=== PATIENT | male | born 1950 | race Caucasian/White ===

== ENCOUNTER 2018-05-29 06:49 | Day surgery (SDC) | payer OTHER, SELFPAY ==
[2018-05-21 16:27] VITALS: BMI 26.6
[2018-05-29] VITALS (11 sets, daily range): BP systolic 128–185; BP diastolic 68–97; PULSE 60–74; RESP 10–18; TEMP 36.3–36.7; O2SAT 94–99; BMI 26.6
--- NOTE | 2018-05-29 07:59 | PM.HP.1 ---
History of Present Illness Date Patient Seen: 05/29/18 Time Patient Seen: 07:53 Chief complaint: 19507 Narrative: Patient is a gentleman here for repair of a symptomatic left inguinal hernia. Patient History Medical History Back pain (Acute) Diverticulosis (Acute) Leg pain (Acute) Status post vasectomy (Acute) Surgical History History of back surgery (Resolved) History of knee replacement (Resolved) S/P left rotator cuff repair (Resolved) S/P right rotator cuff repair (Resolved) History of hernia repair (Inactive) Family & Social History Family History: Reviewed 05/29/18 by Ryan Bai MD Social History: household members spouse Tobacco & Substance use: Smoking Status Former smoker alcohol intake current Substance Use Type marijuana Meds Home Medications Medication Instructions Recorded Confirmed Type atorvastatin [Lipitor] 40 mg PO Q DAY #90 tab 08/13/17 05/29/18 Rx citalopram [Celexa] 20 mg PO QDAY #90 tab 08/13/17 05/29/18 Rx lisinopril 10 mg PO QDAY #90 tab 08/13/17 05/29/18 Rx hydrocodone-acetaminophen [[place]] 1 - 2 tab PO SEE INSTRUCTIONS PRN 05/21/18 05/29/18 History sildenafil [Viagra] 100 mg PO PRN PRN 05/21/18 05/21/18 History Allergies Allergy/AdvReac Type Severity Reaction Status Date / Time oseltamivir [From TAMIFLU] Allergy Mild HIVES Verified 05/29/18 07:24 Review of Systems Review of Systems All systems reviewed & are unremarkable except as noted in HPI and below Exam Vital Signs (past 8 hours): - 05/29/18 07:13 Temperature 97.3 F L Pulse Rate 74 Respiratory Rate 16 Blood Pressure 128/68 Pulse Oximetry 99 Oxygen Delivery Method Room Air Narrative Exam Narrative: Operative no apparent distress. Lungs are clear to auscultation. No rales or rhonchi heart regular rate and rhythm no murmur gallop abdomen is soft nontender without masses. Patient has reducible left inguinal hernia. Testicles normal on that side. Nothing felt on the right. Alert and oriented. Assessment & Plan Plan: Assessment/Plan Narrative: Patient with a left inguinal hernia for repair of discussed the procedure and rationale. The I questions he had regarded of the testicular injury or loss. I explained that that is very rare possibility all questions were answered and he wished to proceed
--- NOTE | 2018-05-29 08:01 | PM.PREOP ---
Pre-operative Note Interval Note Pre-op Check: Yes History & Physical exam performed today by Physician Changes: No
[2018-05-29] MEDS: CEFAZOLIN 2 GM/100 ML FROZ.PIGGY IV (08:13)
--- NOTE | 2018-05-29 08:21 | SUR.OPER ---
Supine on padded OR bed, head on pillow, arms secured on padded arm boards at <90 degrees abduction, legs uncrossed, safety belt at thigh, tape over blanket over lower legs.
[2018-05-29] MEDS: BUPIVACAINE 0.5% (PF) VIAL 30 ML INJ (08:31)
[2018-05-29] MEDS: LACTATED RINGERS 1,000 ML 42 ML IV (09:22)
--- NOTE | 2018-05-29 09:40 | PM.OP.1 ---
Operative Date/Time/Diagnoses Date of procedure: 05/29/18 Time of procedure: 09:19 Pre-op diagnosis: Left inguinal hernia reducible Post-op diagnosis: same (Direct hernia) Procedure & Clinicians Procedure: Repair with plug and patch technique Same procedure as scheduled: Yes Indications: Six the medic left inguinal hernia Surgeon: Ryan Bai Click Yes if Unassisted: Yes Anesthesia Type: General Operative Notes Findings: Direct hernia Closure Type: primary Specimen(s): none sent Implants & Drains: Mesh Estimated Blood Loss (mL): 10 Procedure in detail: The patient was placed supine on the operating room table and underwent general LMA anesthesia. He was prepped and draped in the usual fashion. A transverse incision was made overlying the internal ring and carried down to the level of the external oblique. The external oblique was opened parallel with its fibers through the external ring. The cord structures were elevated. The cremaster was opened proximally and search made for an indirect sac. I could not find any. There was a large amount of fat however protruding up through the floor adherent to the cord structures. Additionally the cord itself contained fat. I removed much of this fat and ligated it. A medium plug was placed in the defect created by this direct hernia. Was tacked into place with interrupted Ethibond sutures. The floor was closed over it. A patch was placed across the floor and tacked at the pubic tubercle, the posterior lamella of the anterior rectus sheath, the ilioinguinal ligament, and superior lateral to the cord. The opening was modified as necessary to prevent tight constriction of the cord. Sutures of 0 Tycron were used to secure the mesh. The external oblique was closed with a running 3 0 Polysorb. The subcu was closed with interrupted 3 0 Polysorb. The skin was closed with a running 4 0 Polysorb subcuticular stitch and Steri-Strips. Dressing was applied, the patient was awakened, and the patient was taken to the recovery area in good condition. Complications: none Condition: stable Disposition: PACU Plan for aftercare: Follow-up in the office
[2018-05-29] MEDS: fentaNYL 100 MCG/2 ML INJ 50 MCG IV ×2 (09:50→09:58)
[2018-05-29] MEDS: OXYCODONE/ACETAMINOPHEN 5/325 TABLET 1 TAB PO ×2 (09:54→10:06)
--- NOTE | 2018-05-29 10:32 | SUR.PHASEII ---
PT TOLERATING COFFEE, WATER AND PUDDING, STATES HIS PAIN IS BETTER AT A 3/10, ICE PACK TO GROIN, DRESSING REMAINS DRY AND INTACT. D/C INSTRUCTIONS GIVEN WITH VERBALIZED UNDERSTANDING.
--- NOTE | 2018-05-29 10:37 | SUR.PHASEII ---
Recieved report from Misti Mello RN and assumed care of pt. Pt states he would like to stay a little longer. Pain is controlled at a 3 and vital signs stable. Pt sitting up drinking coffee will continue to monitor pt and d/c him when he feels ready.
--- NOTE | 2018-05-29 11:32 | SUR.PHASEII ---
Patient states he is ready to go home and d/frances with . States he feels good and denies any complaints.
== END 2018-05-29 11:31 | disposition home or self-care (01) ==
PROVIDERS: Family Provider Family Medicine; PCP Family Medicine; Visit Provider Specialist
PROC: (CPT 49505; principal; 2018-05-29 07:45)
DX: K40.90 Unilateral inguinal hernia, without obstruction or gangrene, not specified as recurrent (principal); Z87.891 Personal history of nicotine dependence; I10 Essential (primary) hypertension
CPT/HCPCS: 49505; C1781; J0690; J1100; J2405; J2704; J3010

== ENCOUNTER → 2018-07-30 09:33 | Outpatient (CLI) | payer OTHER, SELFPAY ==
--- NOTE | 2018-07-30 09:35 | DI.RAD.S_ITS ---
PROCEDURE: XR KNEE RT 3V INDICATIONS: knee pain TECHNIQUE: 3 views of the knee were acquired. COMPARISON: [facility], , KNEE 3V RIGHT, 12/17/2008, 9:36. FINDINGS: Bones: No fractures or dislocations. No suspicious bony lesions. Expected postoperative alignment of medial unicompartmental arthroplasty. Spurring of the superior pole of the patella Soft tissues: Small joint effusion. No suspicious soft tissue calcifications. IMPRESSION: Expected postoperative alignment of medial unicompartmental arthroplasty. Dictated by: Tom Jarvis M.D. on 07/30/2018 at 10:56 Approved by: Tom Jarvis M.D. on 07/30/2018 at 10:57
--- NOTE | 2018-07-30 09:35 | DI.RAD.S_ITS ---
PROCEDURE: XR KNEE LT 3V INDICATIONS: knee pain TECHNIQUE: 4 views of the knee were acquired. COMPARISON: [facility], , KNEE 3V RIGHT, 12/17/2008, 9:36. FINDINGS: Bones: No fractures or dislocations. No suspicious bony lesions. Spurring at the superior pole of patella. Expected postoperative alignment of unicompartmental medial arthroplasty. Soft tissues: Small joint effusion. No suspicious soft tissue calcifications. Scattered vascular calcifications. IMPRESSION: Expected postoperative alignment of medial unicompartmental arthroplasty. Dictated by: Tom Jarvis M.D. on 07/30/2018 at 10:54 Approved by: Tom Jarvis M.D. on 07/30/2018 at 10:56
== END ==
PROVIDERS: Family Provider Family Medicine; PCP Family Medicine; Visit Provider Family Medicine
DX: M25.561 Pain in right knee (principal); M25.562 Pain in left knee; M25.462 Effusion, left knee; M25.461 Effusion, right knee; Z96.653 Presence of artificial knee joint, bilateral
CPT/HCPCS: 73562

== ENCOUNTER → 2018-08-27 08:11 | Outpatient (CLI) | payer OTHER, SELFPAY ==
[2018-08-27 08:46] LABS: Add Manual Diff / Slide Review NO; Basophils Percent Auto 0.5 % (0-2); Eosinophils Percent Auto 3.4 % (2-4); Hematocrit 43.9 % (41-53); Lymphocytes Percent Auto 33.2 % (25-40); Mean Corpuscular HGB Conc 34.3 % (30-36); Mean Corpuscular Hemoglobin 32.2 PG (26-34); Monocytes Percent Auto 9.3 % (3-14); Neutrophils Absolute Auto 3300 /uL (1500-7000); Neutrophils Percent Auto 53.6 % (50-75); Platelet Count 276 X10^3/uL (150-400); Red Blood Cell Count 4.66 X10^6/uL (4.5-5.9); Red Cell Distribution Width 13.4 % (11.6-14.8); White Blood Cell Count 6.1 X10^3/uL (4.5-11.0)
[2018-08-27 09:09] LABS: Alanine Aminotransferase 55 IU/L (21-72); Albumin 4.5 g/dL (3.5-5.0); Albumin Globulin Ratio 1.8 (1.0-2.8); Alkaline Phosphatase 107 U/L (38-126); Aspartate Aminotransferase 38 IU/L (17-59); BUN Creatinine Ratio 22.2 (6-22); Bilirubin Total 0.4 mg/dL (0.2-1.3); Blood Urea Nitrogen 20 mg/dL (9-20); Calcium 9.1 mg/dL (8.4-10.2); Carbon Dioxide 26 mmol/L (22-32); Chloride 103 mmol/L (98-107); Cholesterol 102 mg/dL (140-199); Estimated Glomerular Filt Rate > 60.0 mL/min (>60); Globulin 2.5 g/dL (1.7-4.1); Glucose 98 mg/dL (80-110); HDL Cholesterol 38 mg/dL (40-60); HEMOLYSIS < 15 (0-50); LDL Cholesterol Calculated 48 mg/dL (<100); Potassium 4.4 mmol/L (3.4-5.1); Sodium 144 mmol/L (137-145); Triglycerides 79 mg/dL (35-150)
[2018-08-27 09:21] LABS: Hemoglobin A1C% w Est Avg Glu 5.8 % (4.0-6.0)
[2018-08-27 09:35] LABS: Thyroid Stimulating Hormone 0.91 uIU/mL (0.47-4.68)
[2018-08-27 09:42] LABS: Creatinine Urine Random 103.3 mg/dL
[2018-08-27 09:47] LABS: Microalbumi Creatinin Ratio Ur 8.7 ug/mg CR (<30); Microalbumin Urine Random 0.9 mg/dL (0-1.6)
== END ==
PROVIDERS: Family Provider Family Medicine; PCP Family Medicine; Visit Provider Family Medicine
DX: I10 Essential (primary) hypertension (principal); E78.5 Hyperlipidemia, unspecified; Z12.5 Encounter for screening for malignant neoplasm of prostate; R73.9 Hyperglycemia, unspecified
CPT/HCPCS: 36415; 80053; 80061; 82043; 82570; 83036; 84443; 85025; G0103

== ENCOUNTER → 2019-03-11 15:40 | Outpatient (CLI) | payer OTHER, SELFPAY ==
--- NOTE | 2019-03-11 15:42 | DI.MRI.S_ITS ---
PROCEDURE: MR KNEE LT WO CON INDICATIONS: pain TECHNIQUE: Noncontrast sagittal PD fast spin echo and T2 fast spin echo with fat saturation, sagittal 3-D FLASH with fat saturation; coronal T1 spin echo and PD fast spin echo with fat saturation, and axial PD fast spin echo with fat saturation through the knee. COMPARISON: [facility] [place], CR, XR KNEE STANDING BILATERAL, 08/12/2018, 8:38. FINDINGS: Image quality: Degraded by metallic artifact. Medial compartment arthroplasty has been performed. High T2 signal intensity along the course of the anterior cruciate ligament is present, consistent with myxoid degeneration. No definite ACL tear. Posterior cruciate ligament is intact. Lateral meniscus demonstrates amorphous high signal intensity within the free edge of the body, demonstrating inferior and superior articular surface extension, suggestive of degenerative tearing. Small knee joint effusion. Small Castelan's cyst. Quadriceps and patellar tendon intact. Medial and lateral collateral ligaments grossly intact. Tricompartmental periarticular osteophyte formation, indicating osteoarthritis. IMPRESSION: 1. Limited evaluation secondary to metallic artifact. 2. Myxoid degeneration of the anterior cruciate ligament. 3. Findings suggestive of tearing of the lateral meniscal body. 4. Small knee joint effusion and small Castelan's cyst. 5. Osteoarthritis. Dictated by: Kehinde Martin M.D. on 03/11/2019 at 16:54 Approved by: Kehinde Martin M.D. on 03/11/2019 at 16:57
--- NOTE | 2019-03-11 15:42 | DI.MRI.S_ITS ---
PROCEDURE: MR KNEE RT WO CON INDICATIONS: pain TECHNIQUE: Noncontrast sagittal PD fast spin echo and T2 fast spin echo with fat saturation, sagittal 3-D FLASH with fat saturation; coronal T1 spin echo and PD fast spin echo with fat saturation, and axial PD fast spin echo with fat saturation through the knee. COMPARISON: [facility] [place], CR, XR KNEE STANDING BILATERAL, 08/12/2018, 8:38. FINDINGS: Image quality: Degraded by metallic artifact within the medial compartment. The multiple intraosseous ganglia within the central tibial plateau are present with surrounding moderate degenerative marrow edema. Osseous structures otherwise grossly unremarkable. Small knee joint effusion. Quadriceps and patellar tendons intact. Anterior and posterior cruciate ligaments intact. Medial and lateral collateral ligaments grossly intact. Posterior horn lateral meniscus is intact. No definite lateral meniscal tear, although evaluation is limited by metallic artifact. Mild lateral compartment articular cartilage loss. IMPRESSION: 1. Limited examination secondary to motion artifact. 2. Degenerative sequelae within the tibial plateau. 3. Intact cruciate ligaments. Dictated by: Kehinde Martin M.D. on 03/11/2019 at 16:50 Approved by: Kehinde Martin M.D. on 03/11/2019 at 16:52
== END ==
PROVIDERS: Family Provider Family Medicine; PCP Family Medicine; Visit Provider Family Medicine
DX: M25.561 Pain in right knee (principal); M25.562 Pain in left knee; M17.0 Bilateral primary osteoarthritis of knee; M25.462 Effusion, left knee; M25.461 Effusion, right knee; M71.22 Synovial cyst of popliteal space [Baker], left knee
CPT/HCPCS: 73721

== ENCOUNTER → 2019-09-29 07:57 | Outpatient (CLI) | payer MEDICARE, SELFPAY ==
[2019-09-29 08:47] LABS: Add Manual Diff / Slide Review NO; Basophils Absolute Auto 100 /uL (0-100); Eosinophils Absolute Auto 200 /uL (0-450); Eosinophils Percent Auto 3.7 % (2-4); Hematocrit 41.5 % (41-53); Hemoglobin 13.8 g/dL (13.5-17.5); Lymphocytes Absolute Auto 2400 /uL (1100-4500); Lymphocytes Percent Auto 41.3 % (25-40); Mean Corpuscular HGB Conc 33.3 % (30-36); Mean Corpuscular Hemoglobin 31.9 PG (26-34); Mean Corpuscular Volume 95.6 fL (80-100); Monocytes Absolute Auto 600 /uL (0-900); Monocytes Percent Auto 9.7 % (3-14); Neutrophils Absolute Auto 2600 /uL (1500-7000); Neutrophils Percent Auto 44.3 % (50-75); Platelet Count 251 X10^3/uL (150-400); Red Blood Cell Count 4.34 X10^6/uL (4.5-5.9); Red Cell Distribution Width 13.7 % (11.6-14.8); White Blood Cell Count 5.7 X10^3/uL (4.5-11.0)
[2019-09-29 09:12] LABS: Alanine Aminotransferase 35 IU/L (<50); Albumin 4.6 g/dL (3.5-5.0); Albumin Globulin Ratio 1.6 (1.0-2.8); Alkaline Phosphatase 94 U/L (38-126); Aspartate Aminotransferase 35 IU/L (17-59); Bilirubin Total 0.6 mg/dL (0.2-1.3); Blood Urea Nitrogen 24 mg/dL (9-20); Calcium 9.8 mg/dL (8.4-10.2); Carbon Dioxide 31 mmol/L (22-32); Chloride 102 mmol/L (98-107); Cholesterol 186 mg/dL (140-199); Estimated Glomerular Filt Rate > 60.0 mL/min (>60); Globulin 2.9 g/dL (1.7-4.1); Glucose 101 mg/dL (80-110); HDL Cholesterol 47 mg/dL (40-60); HEMOLYSIS < 15 (0-50); LDL Cholesterol Calculated 103 mg/dL (<100); Potassium 5.1 mmol/L (3.4-5.1); Sodium 141 mmol/L (137-145); Total Protein 7.5 g/dL (6.3-8.2); Triglycerides 181 mg/dL (35-150)
[2019-09-29 09:38] LABS: Prostate Specific Antigen Scrn 2.19 ng/mL (0.1-4.0)
== END ==
PROVIDERS: PCP Family Medicine; Visit Provider Family Medicine
DX: E78.00 Pure hypercholesterolemia, unspecified (principal); E78.2 Mixed hyperlipidemia; I10 Essential (primary) hypertension; Z12.5 Encounter for screening for malignant neoplasm of prostate
CPT/HCPCS: 36415; 80053; 80061; 85025; G0103

== ENCOUNTER → 2019-10-28 07:46 | Outpatient (CLI) | payer MEDICARE, SELFPAY ==
--- NOTE | 2019-10-28 07:55 | DI.ECHO.S_ITS ---
Echocardiogram Report + + :Name: TRAE DORSYE Study Date: 10/28/2019 Height: 69 in : :[facility] Weight: 184 lb : : Gender: Male BSA: 2.0 m2 : :: 1950 Age: 69 yrs BP: 142/80 mmHg: :Reason For Study: MURMUR : :Ordering Physician: Dr. Medel : :Aime Performed By: Denita Orr : :Referring: JESSE HENRIQUEZ : + + Interpretation Summary Left ventricular systolic function is normal without focal wall motion abnormalities with the ejection fraction visually estimated to be 60-65%. Left ventricular wall thickness is mildly increased but diastolic parameters suggest probable normal left ventricular diastolic function and normal filling pressures. The right ventricle is at the upper limits of normal in size but systolic function is normal. The right ventricular systolic pressure is estimated to be at least 23 mmHg based on an estimated right atrial pressure of 3 mm Hg. Both atria are normal in size. There is mild aortic valve sclerosis without stenosis. There is no significant valvular heart disease. Procedure: A two-dimensional transthoracic echocardiogram with color flow and Doppler was performed. The study quality was technically adequate. There is no prior echocardiogram noted for this patient. The patient was in sinus bradycardia with heart rates between 54-57 bpm during the exam. Left Ventricle: The left ventricle is normal in size. Left ventricular wall thickness is mildly increased. A false chord is noted (normal variant). Left ventricular systolic function is normal without focal wall motion abnormalities. The ejection fraction is estimated to be 60-65%. Diastolic parameters suggest probable normal left ventricular diastolic function and normal filling pressures. Right Ventricle: The right ventricle is at the upper limits of normal in size. The right ventricular systolic function is normal. Atria: Both atria are normal in size. There is no Doppler evidence for an interatrial shunt. Mitral Valve: The mitral valve is normal in structure and function. There is trace mitral regurgitation. Aortic Valve: The aortic valve is trileaflet. There is mild aortic valve sclerosis. The aortic valve is slightly calcified. The aortic valve opens well. There is no aortic valve stenosis. There is trace aortic regurgitation. Tricuspid Valve: The tricuspid valve is normal in structure and function. There is trace tricuspid regurgitation. The right ventricular systolic pressure is estimated to be at least 23 mmHg based on an estimated right atrial pressure of 3 mm Hg. Pulmonic Valve: The pulmonic valve is normal in structure and function. There is no pulmonic valvular regurgitation. There is no significant valvular heart disease. Great Vessels: The aortic root is normal size. The dimensions of the ascending aorta are normal. The IVC is of normal diameter and collapses greater than 50% with a sniff. This suggests a low right atrial pressure of 3 mm Hg. Pericardium/ Pleura There is no pericardial effusion. There is no pleural effusion. MMode/2D Measurements & Calculations LVIDd: 3.9 cm LVOT diam: 2.0 cm LVIDs: 2.5 cm Ao root diam: 2.7 cm FS: 36.3 % asc Aorta Diam: 3.1 cm EPSS: 0.72 cm IVSd: 1.2 cm LVPWd: 1.2 cm LV alvarez. diameter/BSA (cm/m^2): 1.9 LV sys. diameter/BSA (cm/m^2): 1.2 LA A2 area: 17.3 cm2 RA long axis: 5.1 cm LA A4 area: 16.9 cm2 RA area: 15.1 cm2 LA length (vol): 4.7 cm RA vol: 37.6 ml LA vol: 52.3 ml RA : 18.9 ml/m2 LA vol index: 26.2 ml/m2 IVC diam: 1.5 cm RVD1 (basal): 3.8 cm TAPSE: 2.5 cm Doppler Measurements & Calculations Ao V2 max: 137.0 cm/sec LVOT Max Abdirizak: 106.6 cm/sec Ao V2 mean: 88.8 cm/sec LV V1 max P.5 mmHg Ao max P.5 mmHg LV V1 VTI: 23.5 cm Ao mean P.7 mmHg ROSSY(I,D): 2.4 cm2 Ao V2 VTI: 29.2 cm ROSSY(V,D): 2.4 cm2 sev ratio: 0.81 ROSSY indexed to BSA (cm^2/m^2): 1.2 MV E max abdirizak: 64.7 cm/sec TR max abdirizak: 226.1 cm/sec MV A max abdirizak: 63.6 cm/sec TR max P.4 mmHg MV E/A: 1.0 PA V2 max: 107.2 cm/sec Med Peak E' Abdirizak: 8.3 cm/sec PA V2 mean: 69.7 cm/sec E/E' med: 7.8 PA mean P.3 mmHg Lat Peak E' Abdirizak: 11.9 cm/sec PA pr(Accel): 32.3 mmHg E/E' lat: 5.4 PA Accel Time: 0.10 sec E/e' average: 6.6 MV dec time: 0.21 sec MV P1/2t: 64.0 msec MV P1/2t max abdirizak: 64.2 cm/sec SV(LVOT): 71.5 ml MVA(P1/2t): 3.4 cm2 _ Reading Physician:SHAHID
== END ==
PROVIDERS: PCP Family Medicine; Referring Provider Family Medicine; Visit Provider Family Medicine
DX: R01.1 Cardiac murmur, unspecified (principal)
CPT/HCPCS: 93306

== ENCOUNTER → 2020-09-27 07:39 | Outpatient (CLI) | payer MEDICARE, OTHER, SELFPAY ==
[2020-09-27 08:36] LABS: Alanine Aminotransferase 37 IU/L (<50); Albumin 4.6 g/dL (3.5-5.0); Albumin Globulin Ratio 1.6 (1.0-2.8); Alkaline Phosphatase 94 U/L (38-126); Aspartate Aminotransferase 34 IU/L (17-59); BUN Creatinine Ratio 22.9 (6-22); Bilirubin Total 0.4 mg/dL (0.2-1.3); Blood Urea Nitrogen 22 mg/dL (9-20); Calcium 9.4 mg/dL (8.4-10.2); Carbon Dioxide 32 mmol/L (22-32); Chloride 105 mmol/L (98-107); Cholesterol 176 mg/dL (140-199); Estimated Glomerular Filt Rate > 60.0 mL/min (>60); Globulin 2.8 g/dL (1.7-4.1); Glucose 105 mg/dL (80-110); HDL Cholesterol 42 mg/dL (40-60); HEMOLYSIS < 15 (0-50); LDL Cholesterol Calculated 94 mg/dL (<100); Sodium 141 mmol/L (137-145); Total Protein 7.4 g/dL (6.3-8.2); Triglycerides 200 mg/dL (35-150)
[2020-09-27 09:06] LABS: Prostate Specific Antigen Scrn 2.12 ng/mL (0.1-4.0)
[2020-09-27 09:14] LABS: Creatinine Urine Random 213.2 mg/dL
[2020-09-27 09:19] LABS: Microalbumi Creatinin Ratio Ur 5.6 ug/mg CR (<30); Microalbumin Urine Random 1.2 mg/dL (0-1.6)
== END ==
PROVIDERS: Referring Provider Family Medicine; Visit Provider Family Medicine
DX: E78.2 Mixed hyperlipidemia (principal); I10 Essential (primary) hypertension; Z12.5 Encounter for screening for malignant neoplasm of prostate
CPT/HCPCS: 36415; 80053; 80061; 82043; 82570; G0103

== ENCOUNTER → 2020-09-29 14:46 | Outpatient (CLI) | payer MEDICARE, SELFPAY ==
[2020-09-29] MEDS: COVID-19 VACC #1, MRNA(MOD) 100 MCG/0.5 ML VIAL IM (14:49)
== END ==
PROVIDERS: Visit Provider Internal Medicine
DX: Z23 Encounter for immunization (principal)
CPT/HCPCS: 0011A; 91301

== ENCOUNTER → 2020-10-27 14:44 | Outpatient (CLI) | payer MEDICARE, OTHER, SELFPAY ==
[2020-10-27] MEDS: COVID-19 VACC #2, MRNA(MOD) 100 MCG/0.5 ML VIAL IM (14:51)
== END ==
PROVIDERS: PCP Family Medicine; Visit Provider Internal Medicine
DX: Z23 Encounter for immunization (principal)
CPT/HCPCS: 0012A; 91301

== ENCOUNTER → 2021-11-01 08:01 | Outpatient (CLI) | payer MEDICARE, OTHER, SELFPAY ==
[2021-11-01 08:20] LABS: Add Manual Diff / Slide Review NO; Basophils Absolute Auto 100 /uL (0-100); Basophils Percent Auto 0.9 % (0-2); Eosinophils Absolute Auto 200 /uL (0-450); Eosinophils Percent Auto 2.9 % (2-4); Hematocrit 42.5 % (41-53); Hemoglobin 14.2 g/dL (13.5-17.5); Lymphocytes Absolute Auto 3100 /uL (1100-4500); Lymphocytes Percent Auto 39.7 % (25-40); Mean Corpuscular HGB Conc 33.4 % (30-36); Mean Corpuscular Hemoglobin 31.5 PG (26-34); Mean Corpuscular Volume 94.3 fL (80-100); Monocytes Absolute Auto 700 /uL (0-900); Neutrophils Absolute Auto 3700 /uL (1500-7000); Neutrophils Percent Auto 47.5 % (50-75); Platelet Count 243 X10^3/uL (150-400); Red Cell Distribution Width 13.7 % (11.6-14.8); White Blood Cell Count 7.7 X10^3/uL (4.5-11.0)
[2021-11-01 08:42] LABS: Alanine Aminotransferase 45 IU/L (<50); Albumin 4.7 g/dL (3.5-5.0); Albumin Globulin Ratio 1.7 (1.0-2.8); Alkaline Phosphatase 85 U/L (38-126); Aspartate Aminotransferase 39 IU/L (17-59); BUN Creatinine Ratio 21.6 (6-22); Bilirubin Total 0.5 mg/dL (0.2-1.3); Blood Urea Nitrogen 19 mg/dL (9-20); Calcium 9.3 mg/dL (8.4-10.2); Carbon Dioxide 28 mmol/L (22-32); Chloride 106 mmol/L (98-107); Cholesterol 212 mg/dL (140-199); Estimated Glomerular Filt Rate > 60.0 mL/min (>60); Globulin 2.7 g/dL (1.7-4.1); Glucose 108 mg/dL (80-110); HDL Cholesterol 42 mg/dL (40-60); HEMOLYSIS 20 (0-50); LDL Cholesterol Calculated 119 mg/dL (<100); Potassium 4.5 mmol/L (3.4-5.1); Sodium 140 mmol/L (137-145); Total Protein 7.4 g/dL (6.3-8.2); Triglycerides 253 mg/dL (35-150)
== END ==
PROVIDERS: PCP Family Medicine; Referring Provider Family Medicine; Visit Provider Family Medicine
DX: E78.00 Pure hypercholesterolemia, unspecified (principal); I10 Essential (primary) hypertension; Z00.00 Encounter for general adult medical examination without abnormal findings
CPT/HCPCS: 36415; 80053; 80061; 85025

== ENCOUNTER → 2022-12-05 09:02 | Outpatient (CLI) | payer MEDICARE, OTHER, SELFPAY ==
[2022-12-05 10:09] LABS: Add Manual Diff / Slide Review NO; Basophils Absolute Auto 100 /uL (0-100); Basophils Percent Auto 0.8 % (0-2); Eosinophils Absolute Auto 300 /uL (0-450); Eosinophils Percent Auto 3.8 % (2-4); Hematocrit 40.8 % (41-53); Hemoglobin 13.4 g/dL (13.5-17.5); Lymphocytes Absolute Auto 2900 /uL (1100-4500); Lymphocytes Percent Auto 42.6 % (25-40); Mean Corpuscular HGB Conc 32.9 % (30-36); Mean Corpuscular Hemoglobin 31.5 PG (26-34); Mean Corpuscular Volume 95.5 fL (80-100); Monocytes Absolute Auto 600 /uL (0-900); Monocytes Percent Auto 9.3 % (3-14); Neutrophils Absolute Auto 2900 /uL (1500-7000); Neutrophils Percent Auto 43.5 % (50-75); Platelet Count 242 X10^3/uL (150-400); Red Blood Cell Count 4.27 X10^6/uL (4.5-5.9); Red Cell Distribution Width 13.8 % (11.6-14.8); White Blood Cell Count 6.8 X10^3/uL (4.5-11.0)
[2022-12-05 10:31] LABS: Alanine Aminotransferase 32 IU/L (<50); Albumin 4.2 g/dL (3.5-5.0); Albumin Globulin Ratio 1.6 (1.0-2.8); Alkaline Phosphatase 86 U/L (38-126); Aspartate Aminotransferase 29 IU/L (17-59); BUN Creatinine Ratio 20.7 (6-22); Bilirubin Total 0.4 mg/dL (0.2-1.3); Blood Urea Nitrogen 18 mg/dL (9-20); Calcium 9.1 mg/dL (8.4-10.2); Carbon Dioxide 29 mmol/L (22-32); Chloride 104 mmol/L (98-107); Cholesterol 184 mg/dL (140-199); Estimated Glomerular Filt Rate > 60 mL/min (>60); Globulin 2.7 g/dL (1.7-4.1); Glucose 97 mg/dL (80-110); HDL Cholesterol 41 mg/dL (40-60); HEMOLYSIS < 15 (0-50); LDL Cholesterol Calculated 89 mg/dL (<100); Potassium 4.7 mmol/L (3.4-5.1); Sodium 141 mmol/L (137-145); Total Protein 6.9 g/dL (6.3-8.2); Triglycerides 271 mg/dL (35-150)
[2022-12-05 11:00] LABS: Prostate Specific Antigen 2.71 ng/mL (0.10-4.00)
== END ==
PROVIDERS: PCP Family Medicine; Referring Provider Family Medicine; Visit Provider Family Medicine
DX: E78.00 Pure hypercholesterolemia, unspecified (principal); I10 Essential (primary) hypertension
CPT/HCPCS: 36415; 80053; 80061; 84153; 85025

== ENCOUNTER → 2023-08-09 15:20 | Outpatient (CLI) | payer MEDICARE, OTHER, SELFPAY ==
[2023-08-09 17:24] LABS: Add Manual Diff / Slide Review NO; Basophils Absolute Auto 100 /uL (0-100); Basophils Percent Auto 0.6 % (0-2); Eosinophils Absolute Auto 200 /uL (0-450); Eosinophils Percent Auto 2.3 % (2-4); Hematocrit 38.1 % (41-53); Hemoglobin 13.1 g/dL (13.5-17.5); Lymphocytes Absolute Auto 3200 /uL (1100-4500); Mean Corpuscular HGB Conc 34.5 % (30-36); Mean Corpuscular Hemoglobin 32.8 PG (26-34); Mean Corpuscular Volume 95.3 fL (80-100); Monocytes Absolute Auto 700 /uL (0-900); Monocytes Percent Auto 8.3 % (3-14); Neutrophils Absolute Auto 4100 /uL (1500-7000); Neutrophils Percent Auto 49.8 % (50-75); Platelet Count 243 X10^3/uL (150-400); Red Cell Distribution Width 13.3 % (11.6-14.8); White Blood Cell Count 8.3 X10^3/uL (4.5-11.0)
[2023-08-09 17:46] LABS: BUN Creatinine Ratio 23.9 (6-22); Blood Urea Nitrogen 21 mg/dL (9-20); Calcium 9.3 mg/dL (8.4-10.2); Carbon Dioxide 31 mmol/L (22-32); Chloride 100 mmol/L (98-107); Estimated Glomerular Filt Rate > 60 mL/min (>60); Glucose 108 mg/dL (80-110); HEMOLYSIS < 15 (0-50); Potassium 4.4 mmol/L (3.4-5.1); Sodium 137 mmol/L (137-145)
[2023-08-09 17:55] LABS: Appearance Urine UA CLEAR; Bilirubin Urine UA NEGATIVE (NEGATIVE); Color Urine UA YELLOW; Glucose Urine UA NEGATIVE (Negative); Ketones Urine UA NEGATIVE (NEGATIVE); Leukocyte Esterase Urine UA NEGATIVE (NEGATIVE); Nitrite Urine UA NEGATIVE (Negative); Occult Blood Urine UA NEGATIVE (Negative); Protein Urine UA NEGATIVE (Negative); Specific Gravity Urine UA 1.025 (1.000-1.035); Urobilinogen Urine UA 0.2 E.U./dL (0.2)
[2023-08-09 17:57] LABS: Hemoglobin A1C% w Est Avg Glu 5.9 % (4.0-6.0)
[2023-08-09 18:30] LABS: Bacteria Urine None Seen; Culture Indicated Urine Cult Not Indicated; RBC Urine None Seen (0-5/HPF); Squamous Epithelial Cell Urine None Seen (0-5/HPF); WBC Urine None Seen (0-5/HPF)
== END ==
PROVIDERS: PCP Family Medicine; Referring Provider Orthopaedic Surgery; Visit Provider Orthopaedic Surgery
DX: Z01.818 Encounter for other preprocedural examination (principal); R73.09 Other abnormal glucose; Z01.812 Encounter for preprocedural laboratory examination; N39.0 Urinary tract infection, site not specified
CPT/HCPCS: 36415; 80048; 81001; 83036; 85025; 93005; 93010

== ENCOUNTER 2023-09-03 11:45 | Day surgery (SDC) | payer MEDICARE, OTHER, SELFPAY ==
[2023-08-28 07:54] VITALS: BMI 28.0
[2023-09-03] VITALS (11 sets, daily range): BP systolic 137–169; BP diastolic 70–91; PULSE 60–86; RESP 12–18; TEMP 36.2–36.9; O2SAT 93–98; BMI 28.0
[2023-09-03] MEDS: VANCOMYCIN 1,000 MG/200 ML PIGGYBACK 200 MG IV (12:45)
[2023-09-03] MEDS: ACETAMINOPHEN 325 MG TABLET 975 MG PO (12:45)
--- NOTE | 2023-09-03 13:27 | PM.PREOP ---
Pre-operative Note Interval Note History & Physical reviewed/Exam performed by Physician: Yes Changes to H&P: No
--- NOTE | 2023-09-03 13:29 | SUR.OPER ---
Head on pillow. Supine on fracture table with operative leg secured in traction. Other leg secured in padded stirrup. Arms across chest, secured with sheet.
--- NOTE | 2023-09-03 13:33 | PM.OP.1 ---
Operative Date/Time/Diagnoses Date of procedure: 09/03/23 Time of procedure: 14:00 Pre-op diagnosis: left hip OA Post-op diagnosis: same Procedure & Clinicians Procedure: Left total hip arthroplasty anterior approach Same procedure as scheduled: Yes Indications: The patient has had progressively worsening left hip pain with radiographic changes consistent with arthritis. Non-operative management has failed and the patient has requested total hip replacement. The risks, benefits and alternatives to surgery were discussed with the patient prior to proceeding. Risks discussed included, but were not limited to, failure to relieve pain, leg length discrepancy, dislocation, stiffness, infection, nerve damage, deep venous thrombosis, pulmonary embolism, stroke, coma, heart attack, permanent paralysis and , as well as the potential need for eventual revision of the prosthetic. Surgeon: Krysta Wilson [employer] Developer: David Romero Operative Notes Findings: Severe left hip OA, good quality bone Closure Type: primary Specimen(s): none sent Prosthetic devices, grafts, tissues, transplants, or devices: Wilson and nephew R3 size 56, neutral poly liner, one 6.5 mm screw, size 0 polar stem, 36 x +4 cobalt chrome head Estimated Blood Loss (mL): 200 Blood products transfused: none Procedure in detail: The patient was brought to the operating room. Patient was carefully positioned in the supine position. Time-out was performed and antibiotics were given. Anesthesia was induced. He was positioned in the on the table in order to allow hyperextension of the hip. The left lower extremity was prepped and draped in a standard sterile fashion. An anterior left hip incision was made 1 fingerbreadth lateral to the anterior superior iliac spine and extended distally towards the greater trochanter. Dissection was carried out through skin and subcutaneous tissues. Superficial hemostasis was achieved. The fascia over the tensor fascia helga was defined and incised with a knife. Two Allis clamps were used to grasp the fascia. Tensor fascia helga was retracted laterally. A gelpi retractor was placed. Dissection was carried out down along the neck. The circumflex vessels were carefully identified and cauterized with the Aqua Mantis. A PA was used during the procedure and was essential for intraoperative retraction and safe implantation of the components. There was good visualization of the femoral neck. A Cobra was placed superior to the neck and the gluteus fibers were carefully stripped from that superior aspect of the capsule. A 2nd retractor was placed along the inferior aspect of the neck. The rectus insertion along the capsule was partially released. A 3rd retractor that was then gently placed over the rim of the acetabulum under the rectus. Capsule was carefully incised and released from the intertrochanteric line circumferentially superior to the mid sagittal line and inferiorly to the mid sagittal line until the lesser trochanter was palpable. A tag stitch was placed both in the superior and inferior limb of the capsular insertion. Along the acetabulum capsule was also released up to the mid sagittal 12:00 position. A portion of the labrum was resected. A saw was used to perform an osteotomy at the level of the intertrochanteric line and the junction of the superior femoral neck leaving approximately 1 finger breath of residual inferior neck above the lesser trochanter. A 2nd cut was made along the femoral neck at the base of the head and a napkin ring of neck was removed. Corkscrew was placed in the femoral head and the head was removed without difficulty. Retractors were then repositioned around the acetabulum. Residual labrum was resected and additional osteophytes were removed. A reamer that was 4 mm below the templated size was placed by hand in the acetabulum and it was reamed to centralize the acetabulum. It was then reamed up to 2 under the templated size and fluoroscopy was brought in to confirm the position of the reaming and depth of reaming. I reamed 1 under the anticipated size. A trial cup was placed and noted that it was appropriately sized and fluoroscopy confirmed position and depth. The component was open and inserted without difficulty fluoroscopic imaging was used to confirm that the cup had been adequately seated and was well positioned. It was further stabilized with a single screw. Neutral poly liner was placed. The cup was tested and noted to be stable. Attention was then directed to the femur. The femur was gently hyperextended additional capsular release was performed as needed in order to allow adequate visualization of the proximal femur with elevation of the femur. Patient was placed in a hyperextended slightly adducted position with maximum external rotation. Box osteotome was used to check for any residual neck as well as sclerotic bone along the trochanter. Julian pepper was placed in the femur. Additional broaching was performed. Canal finder was used to determine the alignment of the canal and position. he had fairly dense bone overall. I started initially with a polar stem but because of his very dense bone and looked at the [facility] a technology and eventually stabilized him with a polar stem. Size 1 broach was placed. The canal was then appropriately broached up to the templated size as long as there was adequate stability of the broach and serial advancement of the broach without excessive impingement. Specific attention was directed at avoiding varus attempting to direct the distal aspect of the broach more anteriorly and avoiding excessive anteversion. Trial reduction showed acceptable range of motion, good stability, no posterior impingement, holiness of leg length and appropriate lateral shuck. I also hyperflexed the hip and checked that there was no impingement anteriorly and there was good stability with flexion, adduction and internal rotation. Marcaine and Exparel were injected. The stem was placed without difficulty. Repeat trial reduction and x-ray showed acceptable overall position, length, and no evidence of the femoral fracture. Final head was placed. Wound was meticulously irrigated with normal saline. The hip was reduced and additional Exparel and Marcaine were injected. The capsule was closed with interrupted nonabsorbable sutures. The fascia of the tensor was closed with interrupted and running Vicryl. No drain was placed. Any tensor fascia helga muscle that appeared to be contused or injured which was a minimal amount was carefully resected. Capsule around the tensor was injected with Exparel and Marcaine. The skin was closed with barbed stitches for the subcutaneous tissue and skin. We also used surgical glue. The wound was dressed sterilely. Brief Betadine soak was also used and was meticulously irrigated with normal saline. Patient was transferred to recovery room in satisfactory condition. Complications: none Post-operative Condition: stable Disposition: Acute Care Plan for aftercare: The patient will be maintained on a standard total hip replacement protocol with weight bearing as tolerated and anterior hip precautions. The patient will receive Aspirin and sequential compression devices for DVT prophylaxis. The patient will be discharged home when safe for the home environment.
--- NOTE | 2023-09-03 14:00 | DI.RAD.S_ITS ---
PROCEDURE: XR HIP W PEL IF DONE LT 2V INDICATIONS: ELICEO TECHNIQUE: 4 intraoperative images of the left hip were acquired.. COMPARISON: None. FINDINGS: Four intraoperative images of left hip arthroplasty. Prosthetic elements are in appropriate position. IMPRESSION: Left hip arthroplasty with intraoperative images demonstrating appropriate positioning of prosthetic elements. Please see separately dictated operative report for full details. Dictated by: Latasha Burrell M.D. on 09/03/2023 at 18:09 Approved by: Latasha Burrell M.D. on 09/03/2023 at 18:11
[2023-09-03] MEDS: CEFAZOLIN 2 GM/100 ML PREMIX 100 ML IV ×2 (14:03→18:04)
[2023-09-03] MEDS: BUPIVACAINE 0.25% (PF) VIAL 30 ML INJ (14:33)
[2023-09-03] MEDS: BUPIVACAINE LIPOSOME 266 MG/20 ML VIAL INJ (14:34)
[2023-09-03] MEDS: TRANEXAMIC ACID 1,000 MG VIAL 1000 MG INJ (14:35)
[2023-09-03] MEDS: LACTATED RINGERS 1,000 ML 42 ML IV (15:23)
--- NOTE | 2023-09-03 17:00 | DI.RAD.S_ITS ---
PROCEDURE: XR HIP W PEL IF DONE LT 2V INDICATIONS: LEFT ANTERIOR HIP REPLACEMENT TECHNIQUE: AP pelvis and lateral view of the hip acquired. COMPARISON: [facility], CR, XR HIP W PEL IF DONE LT 2V, 09/03/2023, 15:02. FINDINGS: Bones: Patient is status post left hip arthroplasty, with hardware components in expected positions. The hip joint appears congruent. The visualized bony structures appear intact. Postsurgical changes of right posterior spinal fusion at L5-S1. Interbody graft material from prior L5-S1 discectomy. Moderate-severe degenerative changes of the right hip. Soft tissues: Overlying postoperative changes are noted. No suspicious soft tissue densities. IMPRESSION: Expected post-operative appearance of left total hip arthroplasty. Dictated by: Tariq Astudillo M.D. on 09/03/2023 at 20:50 Approved by: Tariq Astudillo M.D. on 09/03/2023 at 20:51
--- NOTE | 2023-09-03 17:22 | SUR.PHASEI ---
Patient to take home medication Lisinopril tonight per Dr. Bruner. Pharmacist Thomas notified to update order, pharmacist agreed.
--- NOTE | 2023-09-03 17:27 | SUR.PHASEI ---
Report called to Denita.
--- NOTE | 2023-09-03 17:43 | SUR.PHASEI ---
Addendum entered by Suman Montoya R.N. 09/03/23 17:44: dressing CDI. Original Note: Patient transferred to the floor with belongings bag and black bag. Bedside report given to Denita. VS stable. IV patent. Left hip
[2023-09-03] MEDS: lisinopriL 20 MG TABLET PO (18:04)
[2023-09-03] MEDS: LACTATED RINGERS 1,000 ML 100 ML IV (18:06)
[2023-09-03] MEDS: HYDROCODONE/ACET 5/325 TABLET 1 TAB PO (18:11)
[2023-09-03] MEDS: ASPIRIN EC 81 MG TABLET PO (20:21)
[2023-09-03] MEDS: ACETAMINOPHEN 325 MG TABLET 650 MG PO (20:21)
[2023-09-03] MEDS: DOCUSATE 100 MG CAPSULE PO (20:21)
[2023-09-04] MEDS: HYDROCODONE/ACET 5/325 TABLET 1 TAB PO ×3 (00:14→12:24)
[2023-09-04 00:40] VITALS: BP 162/78; PULSE 89; RESP 16; TEMP 36.8; O2SAT 96
[2023-09-04] MEDS: CEFAZOLIN 2 GM/100 ML PREMIX 100 ML IV (02:13)
[2023-09-04] MEDS: OXYCODONE IR 5 MG TABLET PO ×3 (05:14→15:04)
[2023-09-04 06:10] LABS: Hematocrit 35.7 % (41-53); Hemoglobin 12.1 g/dL (13.5-17.5)
--- NOTE | 2023-09-04 06:30 | PM.DS.1 ---
History of Present Illness History of Present Illness Date Patient Seen: 09/04/23 Time Patient Seen: 06:15 Chief complaint: Left Total Hip Arthroplasty 09/03 Narrative: The patient has had progressively worsening left hip pain with radiographic changes consistent with arthritis. Non-operative management has failed and the patient has requested total hip replacement. The risks, benefits and alternatives to surgery were discussed with the patient prior to proceeding. Risks discussed included, but were not limited to, failure to relieve pain, leg length discrepancy, dislocation, stiffness, infection, nerve damage, deep venous thrombosis, pulmonary embolism, stroke, coma, heart attack, permanent paralysis and , as well as the potential need for eventual revision of the prosthetic. This running he is feeling well. Describing an aching sensation over his thigh. Able to control pain with oral medications. States he has no steps at home and has family to support him. Discharge Providers Provider Date of admission: 09/03/23 Discharge Date: 09/04/23 Primary care physician: Mc Mayo MD Consults: 09/03/23 06:50 Consult to Anesthesiology Routine Comment: Consulting Provider: Anesthesiologist Reason for consultation: Regional block for post operative pain control 09/03/23 17:42 Consult to Discharge Planning Routine Comment: Consult to Occupational Therapy Evaluate & Treat Comment: Physician Instructions: Evaluate and treat Consult to Physical Therapy Evaluate & Treat Comment: Physician Instructions: post op ELICEO protocol Discharge provider: Nate Pichardo PA-C Summary Hospital Course Discharge Diagnosis: Status Post Left Total Hip Arthroplasty Hospital Course: Pain relief. Phyiscal therapy. Status at Discharge Cognitive/behavioral status at discharge: oriented Functional status at discharge: uses cane/walker Overall status at discharge: patient is back to baseline Time Spent with Patient Time spent: Less than 30 minutes Exam Vital Signs (past 8 hours): - 09/04/23 00:40 Temperature 98.2 F Pulse Rate 89 Respiratory Rate 16 Blood Pressure 162/78 H Pulse Oximetry 96 Oxygen Flow Rate 0 Oxygen Delivery Method Room Air Oxygen Flow Rate 0 Narrative Exam Narrative: Patient is found lying comfortably in bed. Dressing appears clean and dry. No pain to palpation along posterior thigh are calf. Able to dorsiflex and plantar flex against resistance at the ankle. Sensation grossly intact to the lower extremities bilaterally. Const General: cooperative, healthy appearing and comfortable Resp Effort & Inspection: normal respiratory effort and able to speak in complete sentences Objective Labs 09/04/23 06:05 Labs: Laboratory Results - last 24 hr 09/04/23 06:05 Hgb 12.1 L Hct 35.7 L PFSH Medical History (Updated 08/28/23 @ 09:14 by Gladis Farr RN) GI bleed (09/2017) NEERAJ (obstructive sleep apnea) Cerumen impaction Redundant eyelid of both eyes Daytime sleepiness Witnessed apneic spells Chronic pain syndrome Diverticulosis Back pain Leg pain Surgical History (Updated 08/28/23 @ 09:12 by Gladis Farr RN) Hx of left inguinal hernia repair (05/29/18) Status post vasectomy History of back surgery History of hernia repair S/P left rotator cuff repair S/P right rotator cuff repair History of knee replacement Family History Father Hypertension Heart disease Cancer Social History (Updated 02/26/18 @ 16:25 by Francisca Roberts LPN) marital status: household members: spouse occupational status: other Smoking Status: Former smoker alcohol intake: current substance use type: marijuana Discharge Assessment & Plan Assessment and Plan Assessment: Status Post Right Hip Arthroplasty Plan of Treatment: Discharge home. Prescribed hydrocodone/acetaminophen 5/325 take 1 tablet every 4 hours as needed for pain. Also recommend take ibuprofen 400 mg every 4 hours for pain inflammation. Aspirin 81 mg 1 pill twice a day for 6 weeks for DVT prophylaxis. Start outpatient physical therapy within the next 7-10 days. Follow-up at [facility] orthopedics clinic in 2 weeks for wound check. Discharge Plan Discharge Plan Patient Disposition: Home Provider Discharge Comment: DC pending PT evaluation Discharge orders & Medications Discharge Orders: Discharge (Order); Ordered 09/04/23 Ordered By: Nate Pichardo Prescriptions: Continued (DME) Disabled Parking See Rx Instructions .Route .MEDSUPPLY Qty: 1 0RF Rx Instructions: Patient has a qualifying condition that requires disabled parking permissions. atorvastatin [Lipitor] 40 mg tablet 40 mg PO Q DAY Qty: 90 3RF citalopram 20 mg tablet See Rx Instructions .ROUTE .COMPLEX Qty: 90 3RF Dose Instruction: TAKE ONE TABLET BY MOUTH ONCE DAILY Rx Instructions: TAKE ONE TABLET BY MOUTH ONCE DAILY hydrocodone-acetaminophen 5-325 mg tablet 1 tab PO TID PRN (Reason: pain) Qty: 90 0RF Rx Instructions: Earliest fill 07/17/23 lisinopril 20 mg tablet 20 mg PO DAILY Qty: 30 2RF Patient Comments: Takes at bedtime ibuprofen 200 mg Tablet 200 mg PO PRN PRN (Reason: Pain (Scale Score 4-6)) Follow up/Referrals: Mc Mayo MD [Primary Care Provider] - Krysta Wilson MD [Physician] - As previously scheduled (Follow up with [place]oacano Pichardo PA-C, on 09/13/2023 @ 11:[address] [facility] in [place].) Diet/Activity/Treatments Diet: Diet as Tolerated Activity: Weightbearing as tolerated to left leg. Posterior hip precautions. Cold/Heat Therapy: Ice to hip as needed for pain. Skin/Wound/Dressing Care Report to your healthcare provider any signs of infection, such as:: chills, fever, night sweats, unusual drainage and unusual redness Dressing: May shower. Leave dressing in place until follow up in office. No bathing or otherwise soaking incision. Call the office if the dressing becomes saturated inside. Visit Report/Discharge Packet Stand Alone Forms: Patient Portal/API Discharge Data Primary Care Provider: Mc Mayo Attending Provider: Krysta Wilson Quality VTE Deep Vein Thrombosis/Pulmonary Embolism Present on Admission: No
[2023-09-04 07:49] VITALS: BP 135/65; PULSE 80; TEMP 36.4; O2SAT 97
[2023-09-04 08:20] VITALS: BP 135/65; PULSE 80
[2023-09-04] MEDS: CITALOPRAM 10 MG TABLET 20 MG PO (08:20)
[2023-09-04] MEDS: ASPIRIN EC 81 MG TABLET PO (08:20)
[2023-09-04] MEDS: lisinopriL 20 MG TABLET PO (08:20)
[2023-09-04] MEDS: ATORVASTATIN 20 MG TABLET 40 MG PO (08:20)
[2023-09-04] MEDS: DOCUSATE 100 MG CAPSULE PO (08:21)
--- NOTE | 2023-09-04 09:25 | PT.IIE ---
Current Diagnoses Unilateral primary osteoarthritis, left hip (09/03/23) Surgery Performed Operation Date: 09/03/23 13:45 Actual Procedures p Total Hip Arthroplasty/Anterior Approach(Left) - Krysta Wilson MD Surgical History (Last Updated 08/28/23 @ 09:12 by Gladis Farr, RN) History of back surgery History of hernia repair History of knee replacement Hx of left inguinal hernia repair (05/29/18) S/P left rotator cuff repair S/P right rotator cuff repair Status post vasectomy Medical History (Last Updated 08/28/23 @ 09:14 by Gladis Farr RN) Back pain Cerumen impaction Chronic pain syndrome Daytime sleepiness Diverticulosis GI bleed (09/2017) Leg pain NEERAJ (obstructive sleep apnea) Redundant eyelid of both eyes Witnessed apneic spells Physical Therapy Inpatient Evaluation/Re-Eval M1 PT/OT-IP Prior Functional Status Start: 09/04/23 11:40 Freq: NEEDED Status: Active Protocol: Document 09/04/23 09:25 AB (Rec: 09/04/23 11:54 AB [id number]) Medical Review Prior Functional Status Medical History Reviewed Yes Communication able to make needs known Mobility and Gait pt stated that he was modified independent with all mobilties and ambulation without AD indoors but uses a SPC for outdoor/long distance ambulation Social History Household Members spouse Living Arrangements House Number of Floors (Floors) One Floor Number of Stairs To Enter/Railing? no steps to enter Home Environment High Toilet,Walk in Shower Home Equipment Front Wheel Walker,Straight Cane,Hand Held Shower M2 PT-IP Current Condition Start: 09/04/23 11:40 Freq: NEEDED Status: Active Protocol: Document 09/04/23 09:25 AB (Rec: 09/04/23 11:54 AB [id number]) Physical Therapy Current Condition Current Condition Evaluation Date 09/04/23 Treatment Diagnosis s/p L ELICEO anterior; difficulty in walking Onset Date 09/03/23 M3 PT-IP Subjective Start: 09/04/23 11:40 Freq: NEEDED Status: Active Protocol: Document 09/04/23 09:25 AB (Rec: 09/04/23 11:54 AB [id number]) Subjective Physical Therapy Visit Type Type Initial Evaluation Visit Start Time 09:25 Visit Stop Time 10:25 Total Visit Minutes 60 Number of BRASS PICKLER Visits 0 Physical Therapy Visit Comments Patient Comments pt is agreeable to do PT Therapy Pain Assessment Pain When Pain Assessed At Rest Location Left hip Intensity 5 Scale Used 8/10 with mobility Pain Behaviors Guarding,Holding Area,Wincing Pain Management Techniques Apply Cold,Distraction, Modification of Treatment,Re- positioning,Timing of Activity with Medications M4 PT-IP Mobility and Gait Start: 09/04/23 11:40 Freq: NEEDED Status: Active Protocol: Document 09/04/23 09:25 AB (Rec: 09/04/23 11:54 AB [id number]) PT-Bed Mobility Assessment Rolling Type of Rolling Log Rolling Level of Assist Maximal Assistance Supine to Sit Supine to Sit Maximum Assistance PT-Transfer Assessment Sit to and From Stand Sit to and from Stand Moderate Assistance,Maximum Assistance,1 Person Assistance ,Use of Upper Extremities Equipment Transfer Assistive Device Gait Belt,Front Wheeled Walker Orthotic/Prosthetic Devices or Brace: No Transfers Transfer Destination Chair Transfer Technique ambulated Transfer Ability Level of Assist Minimal Assistance,1 Person Assistance,Use of Upper Extremities Comments Mobility Comments pt supine in bed and agreeable to do PT. BP in supine: 140/ 64. obtained PLOF and home set up. educated pt regarding anterior hip precautions on LLE and post-op folder also provided. reviewed post-op folder contents and exercises. pt completed supine to sit log roll x 5 attempts and unable to complete without assistance needing max A and max cues and use of bed rail. pt with back problems with h/o back fusion and has been doing log roll bed mobility prior to hip sx. pt requiring SBA for sitting balance on EOB. completed sit to stand mod A to max and cues. instructed pt to sit back on EOB and required max A for controlled descent. educated on sit<> stand techniques. completed sit <>stand again x 2 sets mod A and cues. pt ambulated in room ~ 40 ft using FWW min A and cues for hip precautions. pt agreed to sit on the chair. positioned on the chair. ice pack provided. call light and table placed within reach. informed pt regarding caregiver training and agreed. pt also stated that he does not feel that he is ready to go home. pt called spouse to come in at 1pm today for caregiver training. Gait Assessment Gait Gait Assistance Required: Minimum Assistance Distance (Feet) 40 Able to Maintain Weight Bearing Status Yes During Gait Assistive Devices Assistive Device Gait Belt,Front Wheeled Walker Orthotic/Prosthetic Devices or Brace: No Gait Deviations General Gait Pattern Antalgic,Decreased Stride Length,Decreased Feet Clearance,Flexed Trunk,Step-to Gait Factors Limiting Gait Function Factors Limiting Gait Function Decreased Activity Tolerance, Decreased Strength,Difficulty Following Directions,Limited Range of Motion,Pain,Poor Balance,Poor Safety Awareness PT-Balance Assessment Sitting Balance and Reactions Static Sitting Balance Ability Normal Dynamic Sitting Balance Ability Good Standing Balance and Reactions Static Standing Balance Ability Fair Dynamic Standing Balance Ability Fair Device Used FWW M5 PT-IP Objective Assessments Start: 09/04/23 11:40 Freq: NEEDED Status: Active Protocol: Document 09/04/23 09:25 AB (Rec: 09/04/23 11:54 AB [id number]) Orientation Orientation/Cognition Level of Alertness Alert Orientation Name,Place,Situation Language Function Ability No Deficits Noted Safety Awareness Decreased Safety Awareness Memory Description Short Term Impaired Strength Lower Extremity Strength Assessment Left Impaired Hip 3+/5 Knee 4-/5 Muscle Tone Muscle Tone WNL Yes M6 PT-IP Treatment Start: 09/04/23 11:40 Freq: NEEDED Status: Active Protocol: Document 09/04/23 09:25 AB (Rec: 09/04/23 11:54 AB [id number]) Physical Therapy Treatment Exercises Exercises Heel Slides Education Education Provided Precautions,Weight Bearing Status,Post-Op Packet,Safety M7 PT-IP Assessment and Plan Start: 09/04/23 11:40 Freq: NEEDED Status: Active Protocol: Document 09/04/23 09:25 AB (Rec: 09/04/23 11:54 AB [email or web address]) PT Summary Assessment and Plan Potential Rehabilitation Potential Fair Summary Impairments Pain,ROM,Strength,Balance, Coordination,Sensation, Cognition,Bed Mobility, Transfers,Gait,Activity Tolerance Assessment Summary pt is a 73 y/o male s/o L ELICEO anterior approach POD 1. pt has L anterior hip precautions and is WBAT. pt requiring max A for bed mobiltiy, mod to max A for transfers and min A for ambulation using FWW. Caregiver training set up this afternoon at 1 pm. will continue to assess for safe d/ c plan. Goals Bed Mobility Goal Standby Assistance Transfer Goal Standby Assistance,Front Wheeled Walker Gait Goal Standby Assistance,Front Wheel Walker Gait Distance 100 Other Goals improve bed mobility, transfers and ambulation using FWW or LRAD 250 ft mod I Days to Meet Goals 5 Frequency of Treatment Frequency Of Treatment Twice a Day Treatment Plan Physical Therapy Treatment Plan Bed Mobility Training,Transfer Training,Gait Training, Therapeutic Exercise,Balance Retraining,Post Op Education, Discharge Planning,Hot or Cold Pack,Neuromuscular Re-ed, Coordination Retraining,Manual Therapy Other Recommendations and Next Treatment caregiver training 09/04/23 @ 1 Focus pm Precautions Anterior Hip Precautions No Hip Extension,No Hip External Rotation Weight Bearing Status Weight Bearing Status Weight Bear as Tolerated Allowed Weight Bearing Amount (enter % LLE WBAT or #) (%) Recommendations To Nursing Amount of Assist Needed 1 Person Assist Discharge Recommendations PT Discharge Recommendations Home with Assistance,Home with 25/03 Assist Available,Home Health,Outpatient PT Transportation Needs at Discharge Private Vehicle
--- NOTE | 2023-09-04 09:29 | CM.DANOTE ---
Addendum entered by Jackeline Ramirez R.N. 09/04/23 14:08: Patient was working with therapy, hopes to stay another day. Met with spouse and patient, reminded them that this is an outpatient surgery, unless there is a medical reason for staying, patients usually leave the same day. She asked how much the room stay would be to stay another day, let them know that this DC Bistro Server can't quote this, could be a significant amount, but unclear. Did discuss home health, patient and spouse are interested. Went over the Medicare choice list, they have no preferences. They are ok with RN, P.t, O.T. Noticed that [facility] is on the list for this week, [place] is kindly, emailing the referral. Went back to the room to give a brochure, patient having significant pain. Spouse asked if this DC Bistro Server was to call the doctor about pain and staying another day, and referred her to the nurse, Nuha. At this time, there is a possibility patient may stay another day. For now, will go ahead and order [facility] services. Original Note: DCP: Case received, EMR reviewed and met with patient. Introduced self and role. Was able to obtain information regarding patient's baseline activity status prior to his surgery. DCP assessment completed with information currently available. Patient is a 73 year old male who admitted yesterday morning to the care of the orthopedic team. PCP: Dr. Mayo. Payer: confirmed: Medicare/[facility]. Patient came to the hospital via private vehicle for a surgical procedure. Patient had left total hip arthroplasty anterior approach. Patient has history of left hip Oa. Met with patient in his room. He is alert, pleasant. He was laying in bed, confirmed that he resides in [place] with his spouse, Sandy. He is independent at baseline, stated, I'm not new to this, have about 10 other surgeries. Patient has a cane for home use, and FWW, but is independent at baseline. He plans to do outpatient P.T. at [facility]. P: Patient has discharge orders for home today, pending working with P.t. Jackeline Ramirez RN/Power Cleaner Operator Discharge Planning/Care Management CM Discharge Assessment Start: 09/04/23 09:28 Freq: Status: Active Protocol: Document 09/04/23 09:28 (Rec: 09/04/23 09:29 [id number]) Discharge Planning Assessment Assigned Automotive Engineering Teacher Jackeline Ramirez RN/Power Cleaner Operator Advance Directives? Yes: POLST Advance Directives on File Yes History Provided By Patient,Medical Record Prior Living Arrangements House Household Members spouse Type of transporation used prior to Drives own vehicle admit Independent with ADL's Yes Is patient alert and oriented? Yes Caregiver for Another No DME Already Rented / Owned FWW / Walker,Cane Patient/Family Preference OP PT Therapy Barriers to Discharge No Discharge Plan Home Transportation Arrangement Spouse Referrals Initiated None needed Whiteboard Updated in Patient Room with Yes name and ext. # of Automotive Engineering Teacher Review Status In Process Next Review Type Continued Stay Review Pre-Anesthesia Assessment Start: 08/28/23 07:54 Freq: Status: Active Protocol: Document 08/28/23 07:54 CAB (Rec: 08/28/23 09:33 CAB [id number]) Pre-Anesthesia Assessment Preferred Name Aniket Patient Information Reviewed Via Phone Assessment Assessment Completed With Patient Diagnostic Results BMP/CMP,CBC,EKG,Urinalysis Comment Labs/EKG @ 08/09/23 Primary Care Provider Mc Mayo Seen Specialist in Last 12 Months Yes Specialist Seen Orthopedist Primary Language Surinamese Novelty Twister Operator Required No Height 5 ft 9 in Weight 190 lb Body Mass Index (BMI) 28.0 Hearing Ability Normal Visual Assist Magnifying Glass Dentition Type Teeth, Natural Present Barriers to Learning None Hx Anesthesia Reactions No Hx Family Anesthesia Reaction No Hx Malignant Hyperthermia No Hx Blood Transfusions Yes: Acute blood loss r/tGI bleed r/t NSAIDs, 5 units 2017 Hx Blood Transfusion Reaction Yes: Possible Hives Anesthesia Review Requested No Lead Oracle Developer No alcohol intake current alcohol intake frequency a few times a month Smoking Status Former smoker Tobacco type cigarettes how long ago did patient quit smoking 1982 Substance Use Type marijuana Comment Pt advised not to smoke marijuana 24 hours prior Pain Present Pain Reported Musculoskeletal Symptoms Abnormal Gait,Difficulty Walking,Joint Pain,Muscle Weakness History of Falling (Recent or History of Yes ) Patient is completely paralyzed or No completely immobile Prosthesis or Orthotic Device Cane Mental Status Oriented to own ability Comment Right foot drop foot, weakness Is patient on oxygen? No Does patient have MATIAS/SOB No Hx Sleep Apnea Yes: Did not tolerate CPAP CPAP/BIPAP use prescribed not used Currently Taking a Beta Norma No Can You Climb a Flight of Stairs Without No: Due to I'm out of shape SOB Hx Chest Pain No Hx SOB No Hx Syncope or Dizziness No Anti-Coagulant Therapy No Has a Print Shop Stenographer No Cardiac Testing No Hx Pacemaker/ICD No Pacemaker Rep Required? No Cardiac Clearance Received Not Applicable Diet Type At Home Regular Dysphagia No Gastrointestinal Symptoms None Chronic UTI No Urinary Catheter Present No Hx Urinary Self Catheterization No Diabetes No HgbA1C 5.9 Date 08/09/23 Hx Drug Resistant Organism No Presence of External or Internal Medical Yes: Lumbar hardware Devices Received a COVID vaccine? Yes Received all doses? No Marital Status Lives With spouse Current Living Arrangements House Number of Floors (Floors) One Floor Number of Stairs To Enter/Railing? None Support System Spouse Does the Patient Have Assistance After Yes Surgery Patient Discharge Plan Description Return Home Comment Pt advised same day surgery per surgeon Feels Safe in Current Environment Yes Been Physically Hurt or Threatened By a No Person in Current Environment Do you have thoughts of harming yourself None or others? Are you currently considering suicide? No Do you have a plan to hurt yourself or No Plan others? Do You Have Any Spiritual Beliefs That No May Affect Your HC Choices? Do You Have Any Cultural Practices That No May Affect Your HC Choices? Comment Mu-Ism Who Can We Speak to About Patient's Care Family, friends Identifying Code for Release of Patient Declines to issue Information Health Care Proxy/Next of Kin Sandy () Health Care Proxy Emergency Contact Name Sandy () Emergency Contact Advance Directives? Yes: POLST Power of Payment Analyst No PAC Instructions Durable medical equipment, Medications to take/avoid, Nasal antibiotic,No ETOH/ petroleum product on skin DOS, NPO,Sensory aids,Sturdy shoes/ comfortable clothes,Do not bring valuables and remove jewelry
--- NOTE | 2023-09-04 10:59 | OT.IPNOTE ---
Attempted OT eval and pt states would rather wait til later. Pt states does not feel ready to go home yet.
--- NOTE | 2023-09-04 13:05 | PT.IPTN ---
Current Diagnoses Unilateral primary osteoarthritis, left hip (09/03/23) Surgery Performed Operation Date: 09/03/23 13:45 Actual Procedures p Total Hip Arthroplasty/Anterior Approach(Left) - Krysta Wilson MD Physical Therapy Treatment Note M2 PT-IP Current Condition Start: 09/04/23 11:40 Freq: NEEDED Status: Active Protocol: Document 09/04/23 09:25 AB (Rec: 09/04/23 11:54 AB [id number]) Physical Therapy Current Condition Current Condition Evaluation Date 09/04/23 Treatment Diagnosis s/p L ELICEO anterior; difficulty in walking Onset Date 09/03/23 M3 PT-IP Subjective Start: 09/04/23 11:40 Freq: NEEDED Status: Active Protocol: Document 09/04/23 13:05 AB (Rec: 09/04/23 15:19 AB [id number]) Subjective Physical Therapy Visit Type Type Treatment Note Visit Start Time 13:05 Visit Stop Time 13:50 Total Visit Minutes 45 Number of PATROL CONDUCTOR Visits 0 Physical Therapy Visit Comments Patient Comments agreeable to do PT Therapy Pain Assessment Pain When Pain Assessed At Rest Pain Present Pain Present Pain Reported Location Left hip Intensity 5 Scale Used Numeric (0 - 10) Pain Management Techniques Distraction,Modification of Treatment,Re-positioning, Timing of Activity with Medications M4 PT-IP Mobility and Gait Start: 09/04/23 11:40 Freq: NEEDED Status: Active Protocol: Document 09/04/23 13:05 AB (Rec: 09/04/23 15:19 AB [id number]) PT-Bed Mobility Assessment Supine to Sit Supine to Sit Maximum Assistance,1 Person Assistance,Bedrails Sit to Supine Sit to Supine Maximum Assistance,1 Person Assistance,Bedrails PT-Transfer Assessment Sit to and From Stand Sit to and from Stand Contact Guard Assistance, Minimal Assistance,1 Person Assistance,Use of Upper Extremities Equipment Transfer Assistive Device Gait Belt,Front Wheeled Walker Orthotic/Prosthetic Devices or Brace: No Transfers Transfer Destination Chair Transfer Technique ambulated Transfer Ability Level of Assist Contact Guard Assistance,1 Person Assistance,Use of Upper Extremities Comments Mobility Comments pt supine in bed. spouse in room. spouse stated that she cannot help pt due to her wrist/hand issue. asked pt what his plans are for assistance at home and stated that he is thinking on going to SNF for 1-2 weeks. informed pt regarding SNF qualification and PT will inform case manger if he really wants to go to SNF but may be paying out of pocket. then stated, let's see first how he does. educated spouse on pt's anterior hip precautions. pt completed supine to sit max A and max cues. pt stated that he has a recliner at home that he can sleep on for now. pt completed sit to stand CGA to min A and cues and ambulated in room using FWW ~ 30 ft CGA. pt sat on the chair. spouse then stated that she also has back problems that she has to be careful about. caregiver training conducted. educated spouse on how to use safety belt and how to assist pt. spouse was able to put safety belt on pt. spouse assisted pt with sit to stand and ambulation in room using FWW. pt requested to go back to bed requiring max A for sit to supine. positioned pt in bed. call light and table placed within reach. informed pt regarding HHPT and agreed. pt stated that he is not ready to go home. informed nurse and pillowcase folder. Gait Assessment Gait Gait Assistance Required: Contact Guard Assist,1 Person Assist Distance (Feet) 30 Able to Maintain Weight Bearing Status Yes During Gait Assistive Devices Assistive Device Gait Belt,Front Wheeled Walker Orthotic/Prosthetic Devices or Brace: No Gait Deviations General Gait Pattern Decreased Feet Clearance Factors Limiting Gait Function Factors Limiting Gait Function Decreased Activity Tolerance, Decreased Strength,Limited Range of Motion,Pain,Poor Balance,Poor Safety Awareness M5 PT-IP Objective Assessments Start: 09/04/23 11:40 Freq: NEEDED Status: Active Protocol: Document 09/04/23 09:25 AB (Rec: 09/04/23 11:54 AB [id number]) Orientation Orientation/Cognition Level of Alertness Alert Orientation Name,Place,Situation Language Function Ability No Deficits Noted Safety Awareness Decreased Safety Awareness Memory Description Short Term Impaired Strength Lower Extremity Strength Assessment Left Impaired Hip 3+/5 Knee 4-/5 Muscle Tone Muscle Tone WNL Yes M6 PT-IP Treatment Start: 09/04/23 11:40 Freq: NEEDED Status: Active Protocol: Document 09/04/23 13:05 AB (Rec: 09/04/23 15:19 AB [id number]) Physical Therapy Treatment Education Education Provided Precautions,Weight Bearing Status,Safety M7 PT-IP Assessment and Plan Start: 09/04/23 11:40 Freq: NEEDED Status: Active Protocol: Document 09/04/23 13:05 AB (Rec: 09/04/23 15:19 AB [id number]) PT Summary Assessment and Plan Potential Rehabilitation Potential Fair Summary Impairments Pain,ROM,Strength,Balance,Bed Mobility,Transfers,Gait, Activity Tolerance Progress Towards Goals Slow Progress due to Pain,Slow Progress due to Activity Tolerance Assessment Summary caregiver training conducted and spouse was able to assist pt with transfers and ambulation using FWW. pt needing max A with bed mobility and will be using a recliner to sleep on at this time. pt also will start with HHPT instead of outpt PT at this time due to pt's decrease activity tolerance and will benefit more from HHPT to start. pt may go home with spouse to assist when medically stable. Goals Bed Mobility Goal Standby Assistance Transfer Goal Standby Assistance,Front Wheeled Walker Gait Goal Standby Assistance,Front Wheel Walker Gait Distance 100 Other Goals improve bed mobility, transfers and ambulation using FWW or LRAD 250 ft mod I Days to Meet Goals 5 Frequency of Treatment Frequency Of Treatment Twice a Day Treatment Plan Physical Therapy Treatment Plan Bed Mobility Training,Transfer Training,Gait Training, Therapeutic Exercise,Balance Retraining,Post Op Education, Discharge Planning,Hot or Cold Pack,Neuromuscular Re-ed, Coordination Retraining,Manual Therapy Precautions Anterior Hip Precautions No Hip Extension,No Hip External Rotation Weight Bearing Status Weight Bearing Status Weight Bear as Tolerated Allowed Weight Bearing Amount (enter % LLE WBAT or #) (%) Recommendations To Nursing Amount of Assist Needed 1 Person Assist Discharge Recommendations PT Discharge Recommendations Home with 25/03 Assist Available,Home Health Transportation Needs at Discharge Private Vehicle
--- NOTE | 2023-09-04 14:19 | OT.IPNOTE ---
Pt continues to be anxious and nervous about going home today. Pt not wanting to work with OT at this time again. Able to clarify with pt that his hip and back pain in not constant and improves after performing transitions. To check on pt later or tomorrow if still here.
--- NOTE | 2023-09-04 16:13 | OT.IP.EVAL ---
Current Diagnoses Unilateral primary osteoarthritis, left hip (09/03/23) Surgery Performed Operation Date: 09/03/23 13:45 Actual Procedures p Total Hip Arthroplasty/Anterior Approach(Left) - Krysta Wilson MD Past Medical History (Last Updated 08/28/23 @ 09:14 by Gladis Farr, RN) Back pain Cerumen impaction Chronic pain syndrome Daytime sleepiness Diverticulosis GI bleed (09/2017) Leg pain NEERAJ (obstructive sleep apnea) Redundant eyelid of both eyes Witnessed apneic spells Surgical History (Last Updated 08/28/23 @ 09:12 by Gladis Farr RN) History of back surgery History of hernia repair History of knee replacement Hx of left inguinal hernia repair (05/29/18) S/P left rotator cuff repair S/P right rotator cuff repair Status post vasectomy Occupational Therapy Inpatient Evaluation/Re-Eval M1 PT/OT-IP Prior Functional Status Start: 09/04/23 16:13 Freq: NEEDED Status: Active Protocol: Document 09/04/23 16:13 [facility] (Rec: 09/04/23 16:24 [facility] [id number]) Medical Review Prior Functional Status Medical History Reviewed Yes Communication able to make needs known Mobility and Gait pt stated that he was modified independent with all mobilities and ambulation without AD indoors but uses a SPC for outdoor/long distance ambulation Activities of Daily Living and IADL's Pt had pain during ADL and IADL needs. Social History Household Members spouse Living Arrangements House Number of Floors (Floors) One Floor Number of Stairs To Enter/Railing? no steps to enter Home Environment High Toilet,Walk in Shower Home Equipment Front Wheel Walker,Straight Cane,Hand Held Shower M2 OT-IP Current Condition Start: 09/04/23 16:13 Freq: Status: Active Protocol: Document 09/04/23 16:13 [facility] (Rec: 09/04/23 16:24 [facility] [id number]) Occupational Therapy Current Condition Current Condition Evaluation Date 09/04/23 Treatment Diagnosis S/P L ELICEO Anterior approach Diagnosis Onset Date 09/03/22 Post Operative Precautions Anterior Hip Precautions No Hip Extension,No Hip External Rotation M3 OT- IP Subjective and Pain Start: 09/04/23 16:13 Freq: Status: Active Protocol: Document 09/04/23 16:13 [facility] (Rec: 09/04/23 16:24 [facility] [id number]) OT- Subjective Occupational Therapy Visit Type Type Initial Evaluation Visit Start Time 15:45 Visit Stop Time 16:13 Total Visit Minutes 28 Occupational Therapy Visit Comments Patient Comments Pt agreed to get up after 3 occasion so able to go home. Patient/Caregiver Goals To go home. OT Pain Assessment Pain When Pain Assessed At Rest Pain Present Pain Present Pain Reported Location Left hip Intensity 3 Scale Used Numeric (0 - 10) M4 OT- IP ADL's Start: 09/04/23 16:13 Freq: Status: Active Protocol: Document 09/04/23 16:13 [facility] (Rec: 09/04/23 16:24 [facility] [id number]) OT [id number] General Evaluation Self-Feeding Ability Independent OT ADL-Grooming General Evaluation Grooming Ability Independent OT ADL-Dressing General Eval Upper Body Dressing Ability Standby Assistance Lower Body Dressing Ability Moderate Assistance Areas Needing Assistance Pants/Shorts,Shoes Comments OT Dressing Comments Assist to get his pants up over his feet. Pt states will use the foil operator at home. Assist to get the heel of his foot into the shoe. OT ADL-Toileting Comments OT Toileting Comments Not performed. OT ADL-Bathing Comments OT Bathing Comments Pt not wanting to shower in the hospital and suggested to sponge off prior to obtaining his shower chair. Went over care for bandage needs while showering with pt and his . M5 OT- IP IADL's Start: 09/04/23 16:13 Freq: Status: Active Protocol: Document 09/04/23 16:13 [facility] (Rec: 09/04/23 16:24 [facility] [id number]) OT-Instrumental Activities of Daily Living Deficits IADL Deficits Identified Deficits Home Safety Awareness Awareness of Need for Assistance at Home Good Awareness Ability to Problem Solve Emergency Able to Problem Solve Situations Home Safety Comments Pt has supportive to assist with his needs. Meal Preparation Meal Preparation Caregiver Provides Assist Soloist Dancer Soloist Dancer Caregiver Provides Assist M6 OT- IP Functional Cognition Start: 09/04/23 16:13 Freq: Status: Active Protocol: Document 09/04/23 16:13 [facility] (Rec: 09/04/23 16:24 [facility] [id number]) Cognitive Factors Limiting Selfcare Function Cognitive Ability Level of Alertness Alert Patient Orientation Name,Age,Birthday,Month,Date, Year,Day of Week,Place, Situation Attention Span Ability Capable of Focused Attention, Capable of Sustained Attention Ability to Follow Commands Able to Follow One Step Commands Cognitive Comments Cognitive Assessment Comments Pt able to follow his hip precautions for ADL and mobility needs. OT- Vision and Hearing OT- Vision Assessment Visual Acuity Glasses For Reading Visual Attentiveness WFL Occular Pursuits WFL M7 OT- IP Mobility and Balance Start: 09/04/23 16:13 Freq: Status: Active Protocol: Document 09/04/23 16:13 [facility] (Rec: 09/04/23 16:24 [facility] [id number]) OT- Bed Mobility Assessment Rolling Type of Rolling Roll to Right Level of Assistance Minimal Assistance Supine to Sit Supine to Sit Assist Moderate Assistance Scooting Scooting to Edge of Bed Standby Assistance OT-Transfer Assessment Sit to and From Stand Sit to and from Stand Minimal Assistance Transfers Transfer Ability Contact Guard Assistance Technique Transfer Destination Bed,Chair Transfer Technique Stand Step Pivot Devices Transfer Assistive Devices Gait Belt,Front Wheeled Walker Comments Mobility Comments Pt's able to analy/doff the gait belt after education. Pt needing cues to push up from the bed to stand and that his hold the FWW in place and also assist with her right hand on the gait belt to assist to stand. Suggested if pt does end up sleeping in bed to have a sheet underneath him so his can assist to get his to roll to his side. For now pt's best option is to sleep in the recliner. OT- Balance Assessment Sitting Balance and Reactions Static Sitting Balance Ability Good Dynamic Sitting Balance Ability Good Standing Balance and Reactions Static Standing Balance Ability Fair Dynamic Standing Balance Ability Fair M9 OT- IP Assessment and Plan Start: 09/04/23 16:13 Freq: Status: Active Protocol: Document 09/04/23 16:13 [facility] (Rec: 09/04/23 16:24 [facility] [id number]) OT Summary Assessment and Plan Potential Rehabilitation Potential Good Analytic Complexity at Evaluation Low Summary OT Impairments Pain,Balance,Functional Mobility,Dressing,Toileting, Bathing,Toilet Transfers, Shower Transfers Progress Towards Goals Progressing Toward Goals Assessment Summary Pt low complexity and main barriers are pain, needing assist for bed mobility and ADl needs at this time. Pt has supportive to assist at home. Pt to initially sleep in the recliner and use of urinal at night. Pt to go home with assist have home health initially. Goals Dressing Goal Independent,Long Handled Shoe Horn,Hand Sprayer,Sock Aid Toileting Goal Independent Bathing Goal Standby Assistance Toilet Transfer Goal Independent Shower Transfer Goal Independent Days to Meet Goals 7 Frequency of Treatment Frequency Of Treatment Once a Day Treatment Plan OT Treatment Plan ADL Training,Functional Mobility,Patient/Family Education,Discharge Planning Discharge Recommendations OT Discharge Recommendations Home with Assistance,Home Health Home Equipment Needs shower chair Transportation Needs at Discharge Private Vehicle
--- NOTE | 2023-09-04 16:36 | PC.NURSE ---
Day shift: Pt rating pain 8/10 this AM when getting up with PT. Rating pain 2/10 while at rest. Pt let this RN know that he was taking 3 Lawn per day at home prior to surgery and has a pain contract with [facility]. This RN called JEFFREY Pichardo to let him know about pain, hesitancy to discharge, and pain contract. PA called [facility] office to get approval for discharge PO oxycodone. Per JEFFREY, it was approved by [facility] clinic, and JEFFREY stated he would send oxycodone prescription to [facility]. This RN relayed this information to the patient. Discharge instructions gone over with patient and his . All questions answered, patient stated understanding. PIV d/c'ed prior to discharge. All belongings with patient. REN Centeno escorted patient via wheelchair to exit with his .
== END 2023-09-04 16:42 | disposition home or self-care (01) ==
LOC: OR 11:46 → AC 11:50
PROVIDERS: PCP Family Medicine; Referring Provider Orthopaedic Surgery; Visit Provider Orthopaedic Surgery
PROC: (CPT 27130; principal; 2023-09-03 13:45)
DX: M16.12 Unilateral primary osteoarthritis, left hip (principal)
CPT/HCPCS: 27130; 36415; 73502; 76000; 85014; 85018; 97162; 97165; 97530; 97535; C1776; C9290; J0330; J0690; J1100; J1170; J2250; J2405; J2704; J3010

== ENCOUNTER → 2023-11-21 09:58 | Outpatient (CLI) | payer MEDICARE, OTHER, SELFPAY ==
[2023-11-15 11:04] VITALS: BMI 28.0
--- NOTE | 2023-11-21 10:00 | DI.RAD.S_ITS ---
PROCEDURE: XR KNEE LT 3V INDICATIONS: bilateral knee pain TECHNIQUE: 3 views of the knee were acquired. COMPARISON: [facility], CR, XR KNEE LT 3V, 07/30/2018, 9:45. [facility], CR, XR KNEE RT 3V, 07/30/2018, 9:45. FINDINGS: Bones: Medial compartment hemiarthroplasty is stable. No fractures or dislocations. Mild degenerative changes in the lateral and moderate degenerative changes in the patellofemoral compartment. No suspicious bony lesions. Soft tissues: Small joint effusion. No suspicious soft tissue calcifications. IMPRESSION: Stable appearance of the left knee medial compartment hemiarthroplasty. Moderate degenerative changes in the patellofemoral compartment. Small joint effusion. Dictated by: Satya Case M.D. on 11/21/2023 at 16:51 Approved by: Satya Case M.D. on 11/21/2023 at 16:53
--- NOTE | 2023-11-21 10:00 | DI.RAD.S_ITS ---
PROCEDURE: XR LUMBAR SPINE 2-3V INDICATIONS: chronic neck pain TECHNIQUE: 3 views of the lumbar spine were acquired. COMPARISON: [facility], CR, XR LUMBAR SPINE 2 OR 3 VIEWS, 01/13/2018, 9:01. [facility], CR, L-SPINE 2-3 VIEWS, 04/19/2017, 15:39. FINDINGS: Bones: 5 [id number] vertebrae are present. There is normal bony alignment. No vertebral body compression fractures. Facet joint hypertrophy. Vertebral body osteophytes. Right L5-S1 pedicle screw fixation is stable. No suspicious bony lesions. Left hip arthroplasty. Moderate right hip DJD. Soft tissues: Overlying bowel gas pattern is normal. No suspicious soft tissue calcifications. IMPRESSION: Stable right L5-S1 pedicle screw fixation. Similar degenerative changes in the lumbar spine. No compression fracture. Dictated by: Satya Case M.D. on 11/21/2023 at 16:45 Approved by: Satya Case M.D. on 11/21/2023 at 16:49
--- NOTE | 2023-11-21 10:00 | DI.RAD.S_ITS ---
PROCEDURE: XR CERVICAL SPINE 2V OR 3V INDICATIONS: chronic neck pain TECHNIQUE: 4 view(s) of the cervical spine were acquired. COMPARISON: None. FINDINGS: Bones: Advanced degenerative changes in the cervical spine. This is demonstrable by disc space height loss, prominent osteophytes, and uncovertebral joint hypertrophy. No fractures or dislocations to the T1 level. The lateral masses of C1 appear intact on the odontoid view. No suspicious bony lesions. Soft tissues: No prevertebral soft tissue swelling. IMPRESSION: Advanced degenerative changes in the cervical spine. If clinically indicated consider MRI for further evaluation. Dictated by: Satya Case M.D. on 11/21/2023 at 16:53 Approved by: Satya Case M.D. on 11/21/2023 at 16:58
--- NOTE | 2023-11-21 10:00 | DI.RAD.S_ITS ---
PROCEDURE: XR KNEE RT 3V INDICATIONS: bilateral knee pain TECHNIQUE: 3 views of the knee were acquired. COMPARISON: [facility], , XR KNEE RT 3V, 07/30/2018, 9:45. FINDINGS: Bones: Medial compartment hemiarthroplasty is stable. Mild degenerative changes in the lateral and patellofemoral compartments. No fractures or dislocations. No suspicious bony lesions. Soft tissues: No joint effusion. No suspicious soft tissue calcifications. IMPRESSION: Stable appearance of the right knee medial compartment hemiarthroplasty. Dictated by: Satya Case M.D. on 11/21/2023 at 16:49 Approved by: Satya Case M.D. on 11/21/2023 at 16:51
[2023-11-21 11:09] LABS: Erythrocyte Sedimentation Rate 32 MM/HR (0-15)
[2023-11-21 11:23] LABS: Alanine Aminotransferase 32 IU/L (<50); Albumin 4.2 g/dL (3.5-5.0); Albumin Globulin Ratio 1.4 (1.0-2.8); Alkaline Phosphatase 103 U/L (38-126); Aspartate Aminotransferase 34 IU/L (17-59); BUN Creatinine Ratio 24.1 (6-22); Bilirubin Total 0.6 mg/dL (0.2-1.3); Blood Urea Nitrogen 21 mg/dL (9-20); C-Reactive Protein Quant < 0.5 mg/dL (<1.0); Calcium 9.1 mg/dL (8.4-10.2); Carbon Dioxide 28 mmol/L (22-32); Chloride 105 mmol/L (98-107); Estimated Glomerular Filt Rate > 60 mL/min (>60); Globulin 2.9 g/dL (1.7-4.1); Glucose 118 mg/dL (80-110); HEMOLYSIS < 15 (0-50); Potassium 4.3 mmol/L (3.4-5.1); Sodium 139 mmol/L (137-145); Total Protein 7.1 g/dL (6.3-8.2)
[2023-11-21 11:28] LABS: Rheumatoid Factor < 8.6 IU/mL (<12.0)
[2023-11-23 21:36] LABS: CCP Antibodies IgG/IgA 5 units (0-19)
== END ==
PROVIDERS: PCP Family Medicine; Referring Provider Family Medicine; Visit Provider Family Medicine
DX: M96.1 Postlaminectomy syndrome, not elsewhere classified (principal); M47.812 Spondylosis without myelopathy or radiculopathy, cervical region; M47.816 Spondylosis without myelopathy or radiculopathy, lumbar region; M54.2 Cervicalgia; M25.561 Pain in right knee; M25.562 Pain in left knee; M25.462 Effusion, left knee; M53.9 Dorsopathy, unspecified; G89.4 Chronic pain syndrome; Z96.653 Presence of artificial knee joint, bilateral
CPT/HCPCS: 36415; 72040; 72100; 73562; 80053; 85651; 86140; 86200; 86430

== ENCOUNTER → 2024-02-04 10:41 | Outpatient (CLI) | payer MEDICARE, OTHER, SELFPAY ==
[2023-11-15 11:04] VITALS: BMI 28.0
[2024-02-04 11:20] LABS: Add Manual Diff / Slide Review NO; Basophils Absolute Auto 100 /uL (0-100); Basophils Percent Auto 0.9 % (0-2); Eosinophils Absolute Auto 200 /uL (0-450); Eosinophils Percent Auto 2.9 % (2-4); Hemoglobin 13.8 g/dL (13.5-17.5); Lymphocytes Absolute Auto 3000 /uL (1100-4500); Mean Corpuscular HGB Conc 33.8 % (30-36); Mean Corpuscular Hemoglobin 31.9 PG (26-34); Mean Corpuscular Volume 94.3 fL (80-100); Monocytes Absolute Auto 700 /uL (0-900); Monocytes Percent Auto 8.5 % (3-14); Neutrophils Absolute Auto 4300 /uL (1500-7000); Neutrophils Percent Auto 51.7 % (50-75); Platelet Count 274 X10^3/uL (150-400); Red Blood Cell Count 4.35 X10^6/uL (4.5-5.9); Red Cell Distribution Width 14.2 % (11.6-14.8); White Blood Cell Count 8.3 X10^3/uL (4.5-11.0)
[2024-02-04 11:49] LABS: Alanine Aminotransferase 30 IU/L (<50); Albumin 4.8 g/dL (3.5-5.0); Albumin Globulin Ratio 1.8 (1.0-2.8); Alkaline Phosphatase 114 U/L (38-126); Aspartate Aminotransferase 31 IU/L (17-59); BUN Creatinine Ratio 25.3 (6-22); Bilirubin Total 0.6 mg/dL (0.2-1.3); Blood Urea Nitrogen 23 mg/dL (9-20); Calcium 9.2 mg/dL (8.4-10.2); Carbon Dioxide 27 mmol/L (22-32); Chloride 104 mmol/L (98-107); Cholesterol 224 mg/dL (140-199); Estimated Glomerular Filt Rate > 60 mL/min (>60); Globulin 2.6 g/dL (1.7-4.1); Glucose 115 mg/dL (80-110); HDL Cholesterol 50 mg/dL (40-60); HEMOLYSIS < 15 (0-50); LDL Cholesterol Calculated 125 mg/dL (<100); Potassium 4.8 mmol/L (3.4-5.1); Sodium 137 mmol/L (137-145); Total Protein 7.4 g/dL (6.3-8.2); Triglycerides 247 mg/dL (35-150)
[2024-02-04 12:11] LABS: Creatinine Urine Random 125.83 mg/dL
[2024-02-04 12:15] LABS: Microalbumin Urine Random 0.6 mg/dL (0-1.6)
[2024-02-04 12:16] LABS: Prostate Specific Antigen Scrn 3.67 ng/mL (0.1-4.0)
[2024-02-05 06:53] LABS: Apolipoprotein B 124 mg/dL (<90)
== END ==
PROVIDERS: PCP Family Medicine; Referring Provider Family Medicine; Visit Provider Family Medicine
DX: E78.2 Mixed hyperlipidemia (principal); Z12.5 Encounter for screening for malignant neoplasm of prostate; I10 Essential (primary) hypertension; E78.00 Pure hypercholesterolemia, unspecified; G89.4 Chronic pain syndrome; R40.0 Somnolence; R19.7 Diarrhea, unspecified
CPT/HCPCS: 36415; 80053; 80061; 82043; 82172; 82570; 85025; G0103

== ENCOUNTER → 2024-05-05 08:06 | Outpatient (CLI) | payer MEDICARE, OTHER, SELFPAY ==
[2023-11-15 11:04] VITALS: BMI 28.0
[2024-05-05 13:42] LABS: Alanine Aminotransferase 32 IU/L (<50); Albumin 4.3 g/dL (3.5-5.0); Albumin Globulin Ratio 1.6 (1.0-2.8); Alkaline Phosphatase 96 U/L (38-126); Aspartate Aminotransferase 33 IU/L (17-59); BUN Creatinine Ratio 22.2 (6-22); Bilirubin Total 0.5 mg/dL (0.2-1.3); Blood Urea Nitrogen 20 mg/dL (9-20); Calcium 9.3 mg/dL (8.4-10.2); Carbon Dioxide 25 mmol/L (22-32); Chloride 105 mmol/L (98-107); Cholesterol 200 mg/dL (140-199); Estimated Glomerular Filt Rate > 60 mL/min (>60); Globulin 2.7 g/dL (1.7-4.1); Glucose 103 mg/dL (80-110); HDL Cholesterol 42 mg/dL (40-60); HEMOLYSIS < 15 (0-50); LDL Cholesterol Calculated 110 mg/dL (<100); Potassium 4.7 mmol/L (3.4-5.1); Sodium 139 mmol/L (137-145); Triglycerides 238 mg/dL (35-150)
[2024-05-06 06:07] LABS: Apolipoprotein B 110 mg/dL (<90)
== END ==
PROVIDERS: PCP Family Medicine; Referring Provider Family Medicine; Visit Provider Family Medicine
DX: Z12.5 Encounter for screening for malignant neoplasm of prostate (principal); E78.2 Mixed hyperlipidemia; M25.561 Pain in right knee; M25.562 Pain in left knee; G89.29 Other chronic pain; M25.569 Pain in unspecified knee; Z98.890 Other specified postprocedural states; R97.20 Elevated prostate specific antigen [PSA]; M54.50 Low back pain, unspecified
CPT/HCPCS: 36415; 80053; 80061; 82172; G0103

== ENCOUNTER → 2024-05-20 14:23 | Outpatient (CLI) | payer MEDICARE, OTHER, SELFPAY ==
[2023-11-15 11:04] VITALS: BMI 28.0
--- NOTE | 2024-05-20 14:24 | DI.RAD.S_ITS ---
PROCEDURE: XR SHOULDER RT MIN 2V INDICATIONS: bilateral shoulder pain TECHNIQUE: 3 views of the shoulder were acquired. COMPARISON: None. FINDINGS: Bones: Mild irregularity inferior scapula likely represents old united fracture.. Acromioclavicular and glenohumeral joints: Moderate degeneration in both joints Soft tissues: No soft tissue swelling, calcification or mass. IMPRESSION: Degeneration. Dictated by: Luke Denny M.D. on 05/21/2024 at 8:03 Approved by: Luke Denny M.D. on 05/21/2024 at 8:06
--- NOTE | 2024-05-20 14:24 | DI.RAD.S_ITS ---
PROCEDURE: XR SHOULDER LT MIN 2V INDICATIONS: bilateral shoulder pain TECHNIQUE: Three views of the shoulder were acquired. COMPARISON: None. FINDINGS: Bones: There are no osseous abnormalities. Acromioclavicular and glenohumeral joints: Mild AC and glenohumeral degeneration Soft tissues: No soft tissue swelling, calcification or mass. IMPRESSION: Mild degeneration Dictated by: Luke Denny M.D. on 05/21/2024 at 8:02 Approved by: Luke Denny M.D. on 05/21/2024 at 8:03
== END ==
LOC: RAD 14:24
PROVIDERS: PCP Family Medicine; Referring Provider Family Medicine; Visit Provider Family Medicine
DX: M19.012 Primary osteoarthritis, left shoulder (principal); M19.011 Primary osteoarthritis, right shoulder; M25.511 Pain in right shoulder; M25.512 Pain in left shoulder
CPT/HCPCS: 73030

== ENCOUNTER → 2024-12-28 11:10 | Outpatient (CLI) | payer MEDICARE, OTHER, SELFPAY ==
[2024-12-08 13:08] VITALS: BMI 28.0
--- NOTE | 2024-12-28 11:11 | DI.RAD.S_ITS ---
PROCEDURE: XR HIP W PEL IF DONE FAUSTO MIN 4V INDICATIONS: Bilateral Hip Pain TECHNIQUE: AP pelvis with lateral view(s) of the both hip(s). COMPARISON: [facility], CR, XR HIP W PEL IF DONE LT 2V, 09/03/2023, 17:06. [facility], CR, XR PELVIS WITH LATERAL HIP LEFT, 09/13/2023, 12:00. FINDINGS AND IMPRESSION: Moderate to severe right hip arthrosis. Left hip arthroplasty, similar to prior imaging. Lumbosacral degenerative and postsurgical changes also again seen. Increased left soft tissue ossifications adjacent to the neck portion of the arthroplasty. Vascular calcifications. Dictated by: Mateus Rodas M.D. on 12/28/2024 at 15:51 Approved by: Mateus Rodas M.D. on 12/28/2024 at 15:53
== END ==
PROVIDERS: PCP Family Medicine; Referring Provider Orthopaedic Surgery Adult Reconstructive Orthopaedic Surgery; Visit Provider Orthopaedic Surgery Adult Reconstructive Orthopaedic Surgery
DX: M16.11 Unilateral primary osteoarthritis, right hip (principal); M47.817 Spondylosis without myelopathy or radiculopathy, lumbosacral region; M25.551 Pain in right hip; M25.552 Pain in left hip; Z96.642 Presence of left artificial hip joint
CPT/HCPCS: 73522

== ENCOUNTER → 2025-01-04 11:06 | Outpatient (CLI) | payer MEDICARE, OTHER, SELFPAY ==
[2024-12-08 13:08] VITALS: BMI 28.0
[2025-01-04 12:30] LABS: C-Reactive Protein Quant < 0.5 mg/dL (<1.0)
== END ==
PROVIDERS: PCP Family Medicine; Referring Provider Orthopaedic Surgery Adult Reconstructive Orthopaedic Surgery; Visit Provider Orthopaedic Surgery Adult Reconstructive Orthopaedic Surgery
DX: Z96.642 Presence of left artificial hip joint (principal)
CPT/HCPCS: 86140

== ENCOUNTER → 2025-01-05 14:35 | Outpatient (CLI) | payer MEDICARE, OTHER, SELFPAY ==
[2025-01-05 10:59] VITALS: BMI 28.0
--- NOTE | 2025-01-05 14:37 | DI.CT.S_ITS ---
PROCEDURE: CT PEL WO CON INDICATIONS: Left Hip s/p L ELICEO TECHNIQUE: Noncontrast 3 mm axial sections acquired through the bony pelvis, with coronal and sagittal reformatting. For radiation dose reduction, the following was used: automated exposure control, adjustment of mA and/or kV according to patient size. COMPARISON: [facility], CR, XR PELVIS WITH BILATERAL LATERAL HIPS, 12/26/2022, 8:33. [facility], CR, XR HIP W PEL IF DONE LT 2V, 09/03/2023, 17:06. [facility], CR, XR HIP W PEL IF DONE FAUSTO 3TO4V, 12/28/2024, 11:14. FINDINGS: Image quality: Excellent. Bones: Postsurgical changes are seen from left total hip arthroplasty. Hardware components are in expected positions without signs of loosening or fracture. No acute osseous fracture. Linear ossification posterior inferior to the joint is likely a heterotopic ossification. Moderate degenerative changes are seen in the contralateral right hip. Degenerative changes are seen in the pubic symphysis and included spine. Postsurgical changes from prior unilateral right posterior fixation at the L5-S1 level. Soft tissues: No significant left hip effusion or periarticular mass. The visualized musculature is symmetric and age-appropriate in bulk. Small bilateral fat containing inguinal hernias. Mild colonic diverticulosis. Coarse calcifications are seen in the prostate. IMPRESSION: 1. Postsurgical changes from left total hip arthroplasty. No acute hardware complication or acute osseous abnormality is seen. 2. Degenerative changes are seen in the right hip, sacroiliac joints, and included spine. 3. Small bilateral fat containing inguinal hernias. Approved by: Wan Umanzor M.D. on 01/05/2025 at 21:45
== END ==
LOC: CT 14:37
PROVIDERS: PCP Family Medicine; Referring Provider Family Medicine; Visit Provider Orthopaedic Surgery Adult Reconstructive Orthopaedic Surgery
DX: K40.20 Bilateral inguinal hernia, without obstruction or gangrene, not specified as recurrent (principal); Z96.642 Presence of left artificial hip joint
CPT/HCPCS: 72192

== ENCOUNTER → 2025-02-16 08:33 | Outpatient (CLI) | payer MEDICARE, OTHER, SELFPAY ==
[2025-01-05 10:59] VITALS: BMI 28.0
[2025-02-16 09:39] LABS: Add Manual Diff / Slide Review NO; Basophils Absolute Auto 100 /uL (0-100); Eosinophils Absolute Auto 300 /uL (0-450); Eosinophils Percent Auto 3.4 % (2-4); Hematocrit 41.2 % (41-53); Hemoglobin 14.1 g/dL (13.5-17.5); Lymphocytes Absolute Auto 3700 /uL (1100-4500); Mean Corpuscular HGB Conc 34.1 % (30-36); Mean Corpuscular Hemoglobin 33.1 PG (26-34); Mean Corpuscular Volume 97.2 fL (80-100); Monocytes Absolute Auto 600 /uL (0-900); Monocytes Percent Auto 7.4 % (3-14); Neutrophils Absolute Auto 3500 /uL (1500-7000); Neutrophils Percent Auto 43.2 % (50-75); Platelet Count 262 X10^3/uL (150-400); Red Blood Cell Count 4.24 X10^6/uL (4.5-5.9); Red Cell Distribution Width 13.6 % (11.6-14.8); White Blood Cell Count 8.2 X10^3/uL (4.5-11.0)
[2025-02-16 10:08] LABS: Alanine Aminotransferase 39 IU/L (<50); Albumin 4.9 g/dL (3.5-5.0); Alkaline Phosphatase 84 U/L (38-126); Aspartate Aminotransferase 36 IU/L (17-59); BUN Creatinine Ratio 26.7 (6-22); Bilirubin Total 0.5 mg/dL (0.2-1.3); Blood Urea Nitrogen 24 mg/dL (9-20); Calcium 9.3 mg/dL (8.4-10.2); Carbon Dioxide 25 mmol/L (22-32); Chloride 104 mmol/L (98-107); Cholesterol 213 mg/dL (140-199); Estimated Glomerular Filt Rate > 60 mL/min (>60); Globulin 2.4 g/dL (1.7-4.1); Glucose 105 mg/dL (70-99); HDL Cholesterol 47 mg/dL (40-60); HEMOLYSIS < 15 (0-50); LDL Cholesterol Calculated 119 mg/dL (<100); Potassium 4.8 mmol/L (3.4-5.1); Sodium 139 mmol/L (137-145); Total Protein 7.3 g/dL (6.3-8.2); Triglycerides 234 mg/dL (35-150)
[2025-02-16 10:21] LABS: Creatinine Urine Random 158.21 mg/dL
[2025-02-16 10:24] LABS: Microalbumin Urine Random 1.6 mg/dL (0-1.6)
[2025-02-16 10:30] LABS: TSH w/ Reflex to FT4 1.02 uIU/mL (0.47-4.68)
== END ==
PROVIDERS: PCP Family Medicine; Referring Provider Family Medicine; Visit Provider Family Medicine
DX: E78.2 Mixed hyperlipidemia (principal); M16.0 Bilateral primary osteoarthritis of hip; I10 Essential (primary) hypertension; G89.4 Chronic pain syndrome
CPT/HCPCS: 36415; 80053; 80061; 82043; 82570; 84443; 85025